=== PATIENT | male | born 1970 | race Caucasian/White ===

== ENCOUNTER 2022-07-22 09:11 | Outpatient (CLI) | payer OTHER, SELFPAY ==
--- NOTE | 2022-07-22 09:23 | CT_ITS ---
WS: [id number] LDCT LUNG CANCER SCREENING TECHNIQUE: Noncontrast CT of the chest with coronal and sagittal reformatted images. CLINICAL INFORMATION: NICOTINE DEPENDENCE,CIGARETTES COMPARISON: None. DLP: 76.42 mGy.cm DIvol: Mean CTDIvol: 1.60 (mGy) All CT scans at [facility] use at least one of these dose optimization techniques: automat ed exposure control; mA and/or kV adjustment per patient size (includes targeted exams where dose is matched to clinical indication); or iterative reconstruction. FINDINGS:Noncalcified nodule LEFT lower lobe measuring 5 mm. Tiny nodule RIGHT upper lobe. Normal caliber thoracic aorta. No mediastinal or hilar lymphadenopathy. No axillary lymphadenopathy. Adrenal glands are normal. Cholecystectomy clips. Hepatomegaly. Small esophageal hiatal hernia. No ac [place] pulmonary infiltrates. No focal pneumonia or pleural fluid. Moderate chronic emphysematous change s. Slight bibasilar atelectasis. CT/CT lung screening [id number] IMPRESSION: LUNG-RADS: 2-Benign Appearance or Behavior FOLLOW UP: 12 Month: Continue annual screening with LDCT
[2022-07-22 09:54] VITALS: PULSE 73; RESP 18; O2SAT 98
[2022-07-22] MEDS: albuterol 2.5 mg/3 mL Neb INHALATION (09:54)
[2022-07-22 09:58] VITALS: PULSE 79
== END 2022-07-22 09:12 | disposition home or self-care (01) ==
PROVIDERS: PCP Family Medicine; Visit Provider Family Medicine
DX: Z12.2 Encounter for screening for malignant neoplasm of respiratory organs (principal); F17.210 Nicotine dependence, cigarettes, uncomplicated; R05.3 Chronic cough
CPT/HCPCS: 71271; 94060; 94726; 94729; J7613

== ENCOUNTER 2023-02-08 08:19 | Emergency (ER) | payer OTHER, SELFPAY ==
[2023-02-08 08:24] VITALS: BP 201/123; PULSE 69; RESP 17; TEMP 36.8; O2SAT 98
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
--- NOTE | 2023-02-08 08:33 | ECG_ITS ---
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 Measurements Intervals [place] Rate: 68 P: 35 PA: 149 QRS: 39 QRSD: 105 T: 48 QT: 379 QTc: 404 Interpretive Statements SINUS RHYTHM WITH SINUS ARRHYTHMIA Compared to ECG 10/17/2014 15:41:47 No significant changes Electronically Signed On 02-08-2023 13:55:33 CDT by Sai Ferro M.D. [id number] f
[2023-02-08] MEDS: HYDROcodone-acetaminophen 7.5-325 mg Tablet 1 TAB PO (08:37)
[2023-02-08] MEDS: amlodipine 10 mg Tablet PO (08:37)
[2023-02-08 08:38] VITALS: BP 221/115; PULSE 81; O2SAT 98
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
[2023-02-08 09:32] VITALS: BP 161/95; PULSE 71; O2SAT 95
== END 2023-02-08 09:30 | disposition home or self-care (01) ==
PROVIDERS: Emergency Provider Emergency Medicine; PCP Family Medicine
DX: S13.4XXA Sprain of ligaments of cervical spine, initial encounter (principal); V49.00XA Driver injured in collision with unspecified motor vehicles in nontraffic accident, initial encounter
CPT/HCPCS: 72040; 72072; 73080; 93005; 99284

== ENCOUNTER 2023-10-09 12:45 | Inpatient (IN) | payer OTHER, SELFPAY ==
[2023-10-09 12:46] VITALS: BP 202/97; PULSE 75; RESP 16; TEMP 36.7; O2SAT 96; BMI 24.4
[2023-10-09 12:57] VITALS: BP 202/97; PULSE 75; RESP 16; O2SAT 96
[2023-10-09] MEDS: LORazepam 2 mg Tablet PO ×2 (13:18→19:00)
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
--- NOTE | 2023-10-09 13:46 | PC.PHAR ---
VERIFIED MEDICATIONS AND LAST FILL DATES WITH [facility].
--- NOTE | 2023-10-09 15:14 | PC.NURSE ---
pt cooperated and changed into paper scrubs with security. belongings removed.
[2023-10-09 15:48] LABS: Basophils # 0.2 10^3/uL (0.0-0.1); Basophils % 0.9 %; Eosinophils # 0.1 10^3/uL (0.0-0.8); Eosinophils % 0.8 %; Hematocrit 53.1 % (37-53); Lymphocytes # 2.7 10^3/uL (0.8-4.8); Lymphocytes % 15.3 %; Mean Corpuscular HGB Conc 34.1 g/dL (30-55); Mean Corpuscular Hemoglobin 31.7 pg (27-33); Mean Platelet Volume 10.2 fL (7.4-10.4); Monocytes # 1.1 10^3/uL (0.2-0.9); Monocytes % 6.3 %; Neutrophils # 13.18 10^3/uL (1.8-7.7); Nucleated Red Blood Cells % 0 %; Platelet Count 708 10^3/cmm (157-399); Red Blood Count 5.71 10^6/uL (3.85-5.65); Red Cell Distribution Width 14.3 % (12.1-15.1); White Blood Count 17.33 10^3/uL (3.29-11.43)
[2023-10-09 16:13] LABS: Alanine Aminotransferase 37 U/L (0-41); Albumin Level 4.3 g/dL (3.5-5.2); Alkaline Phosphatase 86 U/L (40-130); Anion Gap 18.3 (5-19); Aspartate Amino Transferase 26 U/L (0-40); Blood Urea Nitrogen 10 mg/dL (6-20); Calcium 9.1 mg/dL (8.5-10.5); Carbon Dioxide 20 mmol/L (22-29); Chloride 99 mmol/L (98-107); Creatinine Clr Calc Pharmacy 106.3586; Globulin 3.4 g/dL (1.3-4.6); Glomerular Filtration Rate 88.3 mL/min (90-130); Glucose 121 mg/dL (65-115); Osmolality Calculated 276 mOsm/kg (285-295); Potassium 4.3 mmol/L (3.5-5.1); Salicylate 0.9 mg/dL (3-10); Sodium 133 mmol/L (136-145); Total Bilirubin 0.5 mg/dL (0.15-1.2); Total Protein 7.7 g/dL (6.6-8.7)
[2023-10-09 16:17] LABS: Acetaminophen < 5.0 ug/mL (10-30)
--- NOTE | 2023-10-09 17:14 | PC.NURSE ---
96 hr rights reviewed with patient @1430 with assistance of [facility] hotel security officer Marty. All education reviewed. Pt verbalized that he did not want to stay overnight because of his kids and needing to be able to go to work. PO Ativan given prior to rights being reviewed. Patient remains agitated towards ER staff. Pt was moved from hallbed into ER 9 to try and given a more calming environment in efforts of avoiding any escalation in behavior. Copy of patient rights left with pt. Dietary called to get a tray of food for pt.
[2023-10-09 17:40] VITALS: BP 202/97; PULSE 75; RESP 16; O2SAT 96
[2023-10-09 18:24] LABS: Alcohol Level < 10 mg/dL (0-10)
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
[2023-10-09] MEDS: haloperidol 5 mg Tablet PO (19:54)
[2023-10-09] MEDS: trazodone 50 mg Tablet PO (19:54)
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
--- NOTE | 2023-10-09 21:44 | PC.NURSE ---
asked pt to obtain vital signs. pt stated he doesn't like to be touched. respirations 18.
[2023-10-10] VITALS: RESP 15
[2023-10-10 04:00] VITALS: RESP 17
[2023-10-10 08:00] VITALS: RESP 20
--- NOTE | 2023-10-10 08:08 | PC.NURSE ---
patient refused vitals saying he will continue to refuse, just wants to go home.
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
--- NOTE | 2023-10-10 09:20 | PC.NURSE ---
Patient refusing assessment
[2023-10-10 12:00] VITALS: RESP 18
--- NOTE | 2023-10-10 12:17 | PC.NURSE ---
Patient room checked for contraband. None found.
[2023-10-10] MEDS: LORazepam 2 mg Tablet PO (13:21)
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
[2023-10-10 16:00] VITALS: BP 158/94; PULSE 73; RESP 20; TEMP 36.6; O2SAT 98
[2023-10-10 20:00] VITALS: BP 183/115; PULSE 93; RESP 18; TEMP 36.3; O2SAT 98
[2023-10-10] MEDS: OLANZapine 5 mg ODT PO (20:42)
[2023-10-10] MEDS: trazodone 50 mg Tablet PO (20:42)
[2023-10-10] MEDS: hyDROXYzine 25 mg Capsule 50 MG PO (20:42)
[2023-10-11] VITALS: RESP 16
[2023-10-11 04:00] VITALS: RESP 16
[2023-10-11 07:51] VITALS: BP 151/91; PULSE 84; RESP 20; TEMP 36.4; O2SAT 95
--- NOTE | 2023-10-11 09:34 | PC.NURSE ---
Patient's blood pressure slightly elevated at 151/91. Patient record shows in 2022 he had previously been on amlodipine 5mg daily and patient stated he would take that medication if prescribed. This RN obtained an order from Dr. Mathew for amlodipine 5mg po daily.
[2023-10-11] MEDS: thiamine 100 mg Tablet PO (09:52)
[2023-10-11] MEDS: ARIPiprazole 2 mg Tablet PO (09:52)
[2023-10-11] MEDS: multivitamin therapeutic Tablet 1 TAB PO (09:52)
[2023-10-11] MEDS: fluoxetine 20 mg Capsule PO (09:52)
[2023-10-11] MEDS: folic acid 1 mg Tablet PO (09:52)
[2023-10-11] MEDS: amlodipine 5 mg Tablet PO (09:53)
[2023-10-11 11:26] VITALS: BP 151/91; PULSE 84; RESP 20; TEMP 36.4; O2SAT 95
--- NOTE | 2023-10-11 12:26 | PC.NURSE ---
Patient room searched for contraband. None found.
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
[2023-10-11 13:04] VITALS: BP 151/91; PULSE 84; RESP 20; TEMP 36.4; O2SAT 95
== END 2023-10-11 13:20 | disposition home or self-care (01) | DRG 885 ==
LOC: ER 13:56 → NP 15:29
PROVIDERS: Admitting Provider Psychiatry & Neurology Psychiatry; Emergency Provider Family Medicine; PCP Family Medicine; Visit Provider Psychiatry & Neurology Psychiatry
DX: F33.9 Major depressive disorder, recurrent, unspecified (principal); R45.851 Suicidal ideations; F10.20 Alcohol dependence, uncomplicated; F43.10 Post-traumatic stress disorder, unspecified; Z63.4 Disappearance and death of family member; Z63.79 Other stressful life events affecting family and household; Z63.8 Other specified problems related to primary support group
CPT/HCPCS: 36415; 80053; 80307; 85025; 99285

== ENCOUNTER 2024-01-02 10:41 | Inpatient (IN) | payer OTHER, SELFPAY ==
[2024-01-02] VITALS (35 sets, daily range): BP systolic 118–181; BP diastolic 70–116; PULSE 70–99; RESP 11–24; TEMP 36.4–36.6; O2SAT 88–97; BMI 30.7
--- NOTE | 2024-01-02 10:44 | ECG_ITS ---
[facility] Test Date: 2024-01-02 Pat Name: Shashi Hough Department: Room: Gender: Male Absorption Operator: : 1970 Requested By: Kya Gaines Order Number: [id number] Jason MD: Twin Ohara M.D. Measurements Intervals Napoleon Rate: 84 P: 53 KS: 150 QRS: 46 QRSD: 106 T: 72 QT: 344 QTc: 408 Interpretive Statements SINUS RHYTHM POSSIBLE RIGHT VENTRICULAR CONDUCTION DELAY [RSR (QR) IN V1/V2] NONSPECIFIC T-WAVE ABNORMALITY Compared to ECG 02/08/2023 08:33:29 T-wave abnormality now present Sinus arrhythmia no longer present Electronically Signed On 01-02-2024 18:47:33 CDT by Twin Ohara M.D. [id number]
--- NOTE | 2024-01-02 10:45 | XRR_ITS ---
PROCEDURE INFORMATION: Exam: XR Chest Exam date and time: 01/02/2024 10:59 AM Age: 53 years old Clinical indication: Pain; Chest pressure; Prior surgery; Surgery date: 6+ months; Surgery type: Chest tube; Additional info: Chest pain TECHNIQUE: Imaging protocol: Radiologic exam of the chest. Views: 1 view. COMPARISON: CT lung screening [id number] 07/22/2022 9:33 AM FINDINGS: Lungs: Mild bibasilar subsegmental atelectasis.. No consolidation. Pleural spaces: Small right apical pneumothorax. No pleural effusion. Heart/Mediastinum: Mild cardiomegaly. Unremarkable mediastinal contours. Bones/joints: Unremarkable. XR/XR chest 1V portable [id number] IMPRESSION: Small right apical pneumothorax.
--- NOTE | 2024-01-02 10:46 | W.ED.CHESTPA ---
HPI - Chest Pain General: Chief Complaint: Chest Pain Stated Complaint: chest pain Time Seen by Provider: 01/02/24 10:41 History of Present Illness: 53-year-old man with a history of hypertension, tobacco dependence, COPD and obesity who presents to the emergency room with episode of chest pain. Initially a pressure in his left chest into his left arm and then became very sharp across his whole chest. He felt more short of breath this morning. He says he is had a worse cough today. He is always short of breath and always has a cough because of his COPD and tobacco use. No nausea or vomiting. No abdominal pain. No altered mental status. No focal motor deficits. No headache. No fevers. No dizziness. Related Data Home Medications Medication Instructions Recorded Confirmed albuterol sulfate 90 mcg/actuation 1 puff inhalation Q6H PRN 10/09/23 01/02/24 aerosol inhaler Shortness Of Breath aripiprazole 2 mg tablet 2 mg PO DAILY 10/09/23 01/02/24 fluticasone fur. 100 mcg-umeclid 1 inh inhalation DAILY 10/09/23 01/02/24 62.5 mcg-vilant 25 mcg inhalat.powder (Trelegy Ellipta) pantoprazole 40 mg tablet,delayed 120 mg PO BEDTIME 10/09/23 01/02/24 release prazosin 2 mg capsule 60 mg PO BEDTIME 10/09/23 01/02/24 amlodipine 5 mg tablet 5 mg PO DAILY 10/11/23 01/02/24 Previous Rx's Medication Instructions Recorded fluoxetine 20 mg capsule 20 mg PO DAILY 30 days #30 caps 10/11/23 folic acid 1 mg tablet 1 mg PO DAILY 30 days #30 tabs 10/11/23 thiamine mononitrate (vit B1) 100 100 mg PO DAILY 30 days #30 tabs 10/11/23 mg tablet (Vitamin B-1 (mononitrate)) trazodone 50 mg tablet 50 mg PO BEDTIME PRN Sleep 30 days 10/11/23 #30 tabs Allergies Allergy/AdvReac Type Severity Reaction Status Date / Time No Known Allergies Allergy Verified 10/09/23 17:42 Review of Systems Narrative: General: Alert, no acute distress. Skin: Warm, dry. Head: Normocephalic, atraumatic. Neck: Supple, trachea midline. Eye: Extraocular movements are intact. Ears, nose, mouth and throat: mucosa moist. Cardiovascular: Regular, Normal peripheral perfusion. Respiratory: Lungs are clear to auscultation, respirations are non-labored, breath sounds are equal, Symmetrical chest wall expansion. Gastrointestinal: Soft, Nontender, Non distended Musculoskeletal: Normal ROM, no deformity. Neurological: Alert and oriented, No focal neurological deficit observed. Psychiatric: Cooperative, appropriate mood & affect. REPLACED BY [facility] ED REPLACED BY [facility]: Medical History (Updated 01/02/24 @ 15:12 by Kya Hogan MD) History of alcohol abuse Physical Exam Narrative: EXAM NARRATIVE: General: Alert, no acute distress. Skin: Warm, dry. Head: Normocephalic, atraumatic. Neck: Supple, trachea midline. Eye: Extraocular movements are intact. Ears, nose, mouth and throat: mucosa moist. Cardiovascular: Regular, Normal peripheral perfusion. Respiratory: Lungs are clear to auscultation, respirations are non-labored, breath sounds are equal, Symmetrical chest wall expansion. Gastrointestinal: Soft, Nontender, Non distended Musculoskeletal: Normal ROM, no deformity. Neurological: Alert and oriented, No focal neurological deficit observed. Psychiatric: Cooperative, appropriate mood & affect. Course Vital Signs: Vital signs: Vital Signs Pulse Rate 87 01/02/24 14:22 Respiratory Rate 15 01/02/24 14:22 Blood Pressure 176/102 01/02/24 14:22 Pulse Oximetry 94 01/02/24 14:22 Oxygen Delivery Me thod Room Air 01/02/24 14:22 MDM - Chest Pain Medical Decision Making Differential diagnosis for patient with chest pain includes but is not limited to and based on the above HPI, review of systems and physical exam: Pneumonia. unstable angina. angina. Acute coronary syndrome / MO. Pulmonary embolism. Costochondritis / musculoskeletal. Pleurisy. Pericarditis. Esophageal spasm. Pancreatis. Cholecystitis. Orders placed to evaluate differential diagnosis based on the above differential, HPI and physical exam EKG: Time 1044. Rate 84. Normal sinus rhythm, some new T wave inversions in V2., no ectopy, normal MN & QRS intervals, This was reviewed and interpreted by myself the ER physician at 10:46 AM. Some minimal changes as compared to EKG done on 02/08/2023. Repeat EKG: Time 1256. Rate 96. Normal sinus rhythm, some new T wave inversions in V2., no ectopy, normal MN & QRS intervals, This was reviewed and interpreted by myself the ER physician at 0100. No significant changes as compared to EKG done previously today in the emergency room.. Lab Review: Laboratory results were reviewed and interpreted by myself the emergency room physician. White count is mildly elevated at 12.8. Polycythemia with a hemoglobin of 17. Thrombophilia with a platelet count of 698. BUN and creatinine are normal at 11 and 0.9. Initial troponin is mildly elevated at 29. Chest x-ray: There was some concern for a small apical right pneumothorax. I thought this appeared more like emphysema and bullae. A CTA of the chest was ordered to reevaluate this and to rule out pulmonary emboli. This was reviewed and interpreted by myself the emergency room physician. I also reviewed the radiology report. CTA of the chest with PE protocol: No PE or other acute abnormality. Emphysematous changes. This was reviewed and interpreted by myself the emergency room physician. I also reviewed the radiology report. I reviewed the patient's medical record. Reexamination: Patient remained stable. No increased work of breathing. No altered mental status. No focal motor deficits. Currently chest pain-free. He is having difficulties with thought of being admitted because he has a daughter and no one to take care of her. Consultation: I spoke with Dr. Ohara who is on-call for cardiology. He recommends aspirin, Plavix, Lovenox and beta-ute. These have been ordered. Consultation: I spoke with Dr. Toledo with the hospitalist service he is admitting the patient. Special needs. Patient has a daughter with him who is 12 years old. She appears to be relatively mature for her age. He has absolutely no one who can take care of the patient tonight and was going to leave so he could take care of her. We discussed at length that he must come and that he is having a heart attack. He expresses understanding. Nursing has made an exception and the patient will be admitted to the ICU and his daughter will be able to stay in that room with him. Is a two bed room. Assessment and plan: Non-ST elevation myocardial infarction Accelerated hypertension Obesity Tobacco dependence ?Lovenox, aspirin, carvedilol and Plavix in the emergency room. -I discussed the patient with the hospitalist on-call who is admitting the patient. - Discussed findings and plan with patient. Answered any questions. - All laboratory values were reviewed and interpreted personally by myself, the ER physician - All imaging was reviewed and interpreted personally by myself, the ER physician. - Evaluation and treatment of this problem were appropriate in the emergency setting -I spent a total of >35 minutes of critical care time managing the patient, independent of any other practitioner. -The time involved in the performance of separately reportable procedures was not counted towards critical care time. Lab Data 01/02/24 10:25 01/02/24 10:25 Radiology Impressions Chest X-Ray 01/02/24 10:45 IMPRESSION: Small right apical pneumothorax. ADDENDUM: 01/02/24 1142 COMMENT: THIS REPORT CONTAINS FINDINGS THAT MAY BE CRITICAL TO PATIENT CARE. The exam findings were verbally communicated by me to KYA HOGAN via telephone conference at 11:39 AM CDT on 01/02/2024. The findings were acknowledged and understood. Chest CTA 01/02/24 11:41 IMPRESSION: No CT evidence of pulmonary embolus or other acute abnormality. COMMENTS: The presence of pulmonary emphysema on CT is an independent risk factor for lung cancer. In the absence of a history or active diagnosis of lung cancer, it is recommended that this patient with emphysema be evaluated for enrollment in a low dose CT lung cancer screening program. Laboratory Results WBC 12.81 10^3/uL (3.29-11.43) H 01/02/24 10:25 RBC 5.43 10^6/uL (3.85-5.65) 01/02/24 10:25 Hgb 17.00 g/dL (11.27-16.99) H 01/02/24 10:25 Hct 50.0 % (37-53) 01/02/24 10:25 MCV 92.1 fl (82-101) 01/02/24 10:25 MCH 31.3 pg (27-33) 01/02/24 10:25 MCHC 34.0 g/dL (30-55) 01/02/24 10:25 RDW 13.6 % (12.1-15.1) 01/02/24 10:25 Plt Count 698 10^3/cmm (157-399) H 01/02/24 10:25 MPV 10.5 fL (7.4-10.4) H 01/02/24 10:25 Neut % (Auto) 60.4 % 01/02/24 10:25 Lymph % (Auto) 28.6 % 01/02/24 10:25 [place] % (Auto) 6.1 % 01/02/24 10:25 Eos % (Auto) 2.8 % 01/02/24 10:25 Baso % (Auto) 1.2 % 01/02/24 10:25 Neut # (Auto) 7.75 10^3/uL (1.8-7.7) H 01/02/24 10:25 Lymph # (Auto) 3.7 10^3/uL (0.8-4.8) 01/02/24 10:25 [place] # (Auto) 0.8 10^3/uL (0.2-0.9) 01/02/24 10:25 Eos # (Auto) 0.4 10^3/uL (0.0-0.8) 01/02/24 10:25 Baso # (Auto) 0.2 10^3/uL (0.0-0.1) H 01/02/24 10:25 Nucleated RBC % (auto) 0 % 01/02/24 10:25 Nucleated RBCs # 0.0 /100WBC 01/02/24 10:25 Sodium 134 mmol/L (136-145) L 01/02/24 10:25 Potassium 5.1 mmol/L (3.5-5.1) 01/02/24 10:25 Chloride 101 mmol/L (98-107) 01/02/24 10:25 Carbon Dioxide 19 mmol/L (22-29) L 01/02/24 10:25 Anion Gap 19.1 (5-19) H 01/02/24 10:25 BUN 11 mg/dL (6-20) 01/02/24 10:25 Creatinine 0.9 mg/dL (0.7-1.2) 01/02/24 10:25 GFR Calculation 87.9 mL/min (90-130) L 01/02/24 10:25 Glucose 155 mg/dL (65-115) H 01/02/24 10:25 Calculated Osmolality 281 mOsm/kg (285-295) L 01/02/24 10:25 Calcium 9.8 mg/dL (8.5-10.5) 01/02/24 10:25 Iron 68 ug/dL (59-158) 01/02/24 12:23 TIBC 210 mcg/dl 01/02/24 12:23 % Saturation 32.3 % (20-50) 01/02/24 12:23 Unsat Iron Binding 142 ug/dL (112-347) 01/02/24 12:23 Total Bilirubin 0.3 mg/dL (0.15-1.2) 01/02/24 10:25 AST 24 U/L (0-40) 01/02/24 10:25 ALT 33 U/L (0-41) 01/02/24 10:25 Alkaline Phosphatase 87 U/L (40-130) 01/02/24 10:25 Troponin T Baseline 29 ng/L (0-15) H 01/02/24 10:25 Troponin T 120 Minute 224.1 ng/L (0-15) H 01/02/24 12:23 Delta Troponin T 195.1 ABS# (0-10) H* 01/02/24 12:23 C-Reactive Protein 3.0 mg/L (0.0-4.9) 01/02/24 10:25 NT-Pro-B Natriuret Pep 58 pg/mL (0-125) 01/02/24 10:25 Total Protein 7.0 g/dL (6.6-8.7) 01/02/24 10:25 Albumin 4.3 g/dL (3.5-5.2) 01/02/24 10:25 Globulin 2.7 g/dL (1.3-4.6) 01/02/24 10:25 Vitamin B12 319 pg/mL (232-1245) 01/02/24 12:23 Procalcitonin 0.15 ng/mL (0-0.5) 01/02/24 12:23 TSH 1.27 uIU/mL (0.27-4.20) 01/02/24 12:23 All radiology interpretation(s) finalized by discharge Discharge Plan Discharge Patient Disposition: Admitted As Inpatient Admit Provider: Krishna Henao Clinical Impression: Non-ST elevated myocardial infarction, Accelerated hypertension, Tobacco dependence, Obesity Condition: Stable Coding Level of Care Code ED Natural Resources Engineer for Nicki Bahena
[2024-01-02 10:55] LABS: Basophils # 0.2 10^3/uL (0.0-0.1); Basophils % 1.2 %; Eosinophils # 0.4 10^3/uL (0.0-0.8); Eosinophils % 2.8 %; Lymphocytes # 3.7 10^3/uL (0.8-4.8); Lymphocytes % 28.6 %; Mean Corpuscular Hemoglobin 31.3 pg (27-33); Mean Corpuscular Volume 92.1 fl (82-101); Mean Platelet Volume 10.5 fL (7.4-10.4); Monocytes # 0.8 10^3/uL (0.2-0.9); Monocytes % 6.1 %; Neutrophils # 7.75 10^3/uL (1.8-7.7); Neutrophils % 60.4 %; Nucleated Red Blood Cells % 0 %; Platelet Count 698 10^3/cmm (157-399); Red Blood Count 5.43 10^6/uL (3.85-5.65); Red Cell Distribution Width 13.6 % (12.1-15.1); White Blood Count 12.81 10^3/uL (3.29-11.43)
[2024-01-02 11:14] LABS: Troponin(5th) Baseline 29 ng/L (0-15)
[2024-01-02 11:30] LABS: Alanine Aminotransferase 33 U/L (0-41); Albumin Level 4.3 g/dL (3.5-5.2); Alkaline Phosphatase 87 U/L (40-130); Anion Gap 19.1 (5-19); Aspartate Amino Transferase 24 U/L (0-40); Blood Urea Nitrogen 11 mg/dL (6-20); Calcium 9.8 mg/dL (8.5-10.5); Carbon Dioxide 19 mmol/L (22-29); Chloride 101 mmol/L (98-107); Globulin 2.7 g/dL (1.3-4.6); Glomerular Filtration Rate 87.9 mL/min (90-130); Glucose 155 mg/dL (65-115); NT Pro B Type Natriuretic Pept 58 pg/mL (0-125); Osmolality Calculated 281 mOsm/kg (285-295); Potassium 5.1 mmol/L (3.5-5.1); Sodium 134 mmol/L (136-145); Total Bilirubin 0.3 mg/dL (0.15-1.2)
--- NOTE | 2024-01-02 11:41 | CTR_ITS ---
PROCEDURE INFORMATION: Exam: CTA Chest With Contrast Exam date and time: 01/02/2024 12:07 PM Age: 53 years old Clinical indication: Pain; Chest pressure; Prior surgery; Surgery date: 6+ months; Surgery type: Chest tube; Additional info: Chest pain, pneumothorax TECHNIQUE: Imaging protocol: Computed tomographic angiography of the chest with contrast. Exam focused on the arteries. 3D rendering (Not supervised by radiologist): MIP and/or 3D reconstructed images were created by the technologist. Radiation optimization: All CT scans at this facility use at least one of these dose optimization techniques: automated exposure control; mA and/or kV adjustment per patient size (includes targeted exams where dose is matched to clinical indication); or iterative reconstruction. Contrast material: OMNI 350; Contrast volume: 100 ml; Contrast route: INTRAVENOUS (IV); COMPARISON: CT lung screening [id number] 07/22/2022 9:33 AM RADIATION DOSE METRICS: Total DLP (mGy-cm): 499.04 FINDINGS: Pulmonary arteries: Normal. No pulmonary emboli. Aorta: Unremarkable. No aortic aneurysm. No aortic dissection. Lungs: There is mild bilateral lower lobe atelectasis. No consolidating infiltrates are noted. There are emphysematous changes noted Pleural spaces: Unremarkable. No pneumothorax. No pleural effusion. Heart: Unremarkable. No cardiomegaly. No pericardial effusion. Lymph nodes: There are small mediastinal and hilar lymph nodes which are not pathologically enlarged by size criteria. Bones/joints: There is a remote fracture deformity of the mid to distal right clavicle. There are also multiple remote right rib fracture deformities. No acute fractures are noted. There are degenerative changes of the thoracic spine. Soft tissues: Unremarkable. CT/CT angio chest PE protcl [id number] IMPRESSION: No CT evidence of pulmonary embolus or other acute abnormality. COMMENTS: The presence of pulmonary emphysema on CT is an independent risk factor for lung cancer. In the absence of a history or active diagnosis of lung cancer, it is recommended that this patient with emphysema be evaluated for enrollment in a low dose CT lung cancer screening program.
[2024-01-02] MEDS: iohexol 350 mg/mL 500 mL Btl (per mL) IV (12:11)
--- NOTE | 2024-01-02 12:45 | ECG_ITS ---
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 Measurements Intervals [place] Rate: 96 P: 47 IN: 147 QRS: 45 QRSD: 109 T: 78 QT: 333 QTc: 421 Interpretive Statements SINUS RHYTHM POSSIBLE RIGHT VENTRICULAR CONDUCTION DELAY [RSR (QR) IN V1/V2] NONSPECIFIC ST & T-WAVE ABNORMALITY Compared to ECG 01/02/2024 10:44:07 No significant changes Electronically Signed On 01-02-2024 18:51:57 CDT by Twin Ohara M.D. [id number]
[2024-01-02 13:15] LABS: Troponin 5 2HR 224.1 ng/L (0-15)
[2024-01-02 13:16] LABS: Troponin 5 2HR Delta 195.1 ABS# (0-10)
--- NOTE | 2024-01-02 13:34 | USCV_ITS ---
Shashi Hough Age: 53 Gender: M : 1970 Exam Date: 01/02/2024 15:31 Ordering Phys: Krishna Henao MD Technologist: Hans Lagunas Exam Location: [facility] [place] Indication: nstemi BP: 176 / 102 HR: 80 Rhythm: Sinus Technical Quality: Adequate MEASUREMENTS (Male / Female) Normal Values 2D ECHO LV Diastolic Diameter PLAX 6.3 cm 4.2 - 5.9 / 3.9 - 5.3 cm IVS Diastolic Thickness 1.2 cm 0.6 - 1.0 / 0.6 - 0.9 cm IVS Systolic Thickness 1.3 cm LVPW Diastolic Thickness 1.7 cm 0.6 - 1.0 / 0.6 - 0.9 cm LVPW Systolic Thickness 2.7 cm LVOT Diameter 2.0 cm LV Ejection Fraction 2D Teich 42.8 % LV Ejection Fraction MOD 4C 49.5 % LV Ejection Fraction MOD 2C 43.6 % LV Ejection Fraction 2C AL 44.8 % LA Diameter 4.2 cm RA Systolic Volume 4C AL 30.5 ml RA Systolic Volume 4C MOD 31.2 ml LA Sys Volume AL 51.9 cm cubed LA Sys Volume Index AL 22.9 cm cubed/m squared Aorta at Sinotubular Diameter 2.5 cm IVC Diameter 2.0 cm M-MODE LA Ao Ratio MM 1.1 AV Cusp Separation MM 1.8 cm DOPPLER AV Peak Velocity 113.3 cm/s LVOT Peak Velocity 92.0 cm/s AV Area Cont Eq vti 2.4 cm squared AV Area Cont Eq pk 2.6 cm squared MV Peak Velocity 110.0 cm/s MV Area PHT 6.9 cm squared Mitral E to A Ratio 1.1 TV Peak Velocity 174.5 cm/s TR Peak Velocity 218.0 cm/s TR Peak Gradient 19.0 mmHg TR Mean Velocity 172.0 cm/s TR Mean Gradient 12.5 mmHg TR Velocity Time Integral 49.0 cm PV Peak Velocity 106.3 cm/s RV Ejection Time 0.2 s FINDINGS Left Ventricle Moderate hypokinesia of the mid and apical septum, inferior wall and apical segments. LV ejection fraction around 40 to 45%.Grade I/IV diastolic dysfunction (abnormal relaxation filling pattern), normal to mildly elevated filling pressures. Right Ventricle Normal right ventricular size and systolic function. Right Atrium The right atrium is normal in size. Left Atrium Mildly increased left atrial size. Mitral Valve No gross valvular abnormalities Aortic Valve No gross abnormalities noted Tricuspid Valve No gross abnormalities noted Pulmonic Valve Pulmonic valve not well visualized. Pericardium Normal pericardium without effusion. Aorta Normal ascending aorta dimension. IVC Inferior vena cava not visualized. CONCLUSIONS Moderate hypokinesia of the mid and apical septum, inferior wall and apical segments. LV ejection fraction around 40 to 45% .Grade I/IV diastolic dysfunction (abnormal relaxation filling pattern), normal to mildly elevated filling pressures. Mildly increased left atrial size. No intracardiac masses. No pericardial effusion No similar previous studies are available for comparison Dr Twin Ohara MD FACC (Electronically Signed) Final Date: 02 January 2024 16:58 S
[2024-01-02] MEDS: atorvastatin 40 mg Tablet 80 MG PO (13:51)
[2024-01-02] MEDS: clopidogrel 300 mg Tablet PO (13:51)
[2024-01-02] MEDS: sodium chloride 0.9% 1,000 ML 75 ML IV (13:51)
[2024-01-02] MEDS: aspirin 81 mg Chew Tablet 324 MG PO (13:51)
[2024-01-02] MEDS: enoxaparin 100 mg/mL Syringe SUBCUT (13:51)
--- NOTE | 2024-01-02 14:10 | P.HP_ITS ---
Providers/Chief Complaint 2 Admitting Physician: Krishna Henao MD Primary Care Provider: Augusto Kelly MD Chief Complaint: chest pain History of Present Illness Shashi Hough is a 53 year old male Chronic smoker, hypertensive, COPD who presents to the ER today because of bandlike chest pain rating to neck which started around 10 AM relieved after nitro. Patient denies having any family or personal history of CAD or stroke in the past. Drinks up to 2 beer every evening with last compression yesterday evening. Denies any nausea vomiting, headache for now. In the ER he was found to have baseline troponin of 29 with a delta of 195 in 2 hours. On examination in ICU he was still complaining of chest heaviness and some chest pain on the right side though better than when he had come to the ER. Was found to have a systolic blood pressure of 170 over 100 mmHg. Review of Systems 2 General: Reports: 10 or more systems reviewed and unremarkable except in HPI and below Const: Denies: fever(s), chills, body aches, change in appetite, change in weight, malaise, night sweats, diaphoresis, change in sleep pattern, daytime sleepiness or snoring Eyes: Denies: change in vision, blurry vision, photophobia, eye discomfort or eye discharge ENMT: Denies: throat pain, enlarged tonsils, hoarseness, mouth pain, oral sores, dry mouth, tinnitus, nasal congestion or post nasal drip Card: Denies: chest pain, palpitations, irregular heart rhythm, edema, swelling of feet/ankles, lightheadedness, syncope, pre-syncope, dyspnea on exertion, orthopnea, leg pain with exertion or acrocyanosis Resp: Denies: dyspnea, productive cough, non-productive cough, wheezing, stridor, pain on inspiration, change in phlegm color, hemoptysis or chest congestion GI: Denies: abdominal pain, nausea, vomiting, hematemesis, coffee ground emesis, dysphagia, heartburn, diarrhea, constipation, bloating, GI cramping, change in bowel habits, pain on defecation, hematochezia or melena : Denies: flank pain, difficulty urinating, dysuria, urinary frequency, urinary urgency, urinary hesitancy, urinary dribbling, difficulty starting urination, change in urine stream, nocturia or hematuria Musc: Denies: neck pain, back pain, extremity pain, joint pain, joint swelling, joint redness, joint stiffness or limited range of motion Neuro: Denies: headache(s), numbness in extremities, weakness in extremities, sensory changes, lack of coordination, difficulty walking, frequent falls, dizziness, vertigo, confusion, Slurred speech present, difficulty communicating thoughts or seizure-like activity Psych: Denies: anxiety, depression, mood swings, panic attacks, hopelessness or irritability Endo: Denies: polyuria, polydipsia, tired all the time, cold intolerance, excessive sweating, flushing or heat intolerance Neo/Lymph: Denies: easy bruising or easy bleeding All/Imm: Denies: tongue swelling, facial swelling or acute wheezing Medications/Allergies Home Medications Medication Instructions Recorded Confirmed Last Taken Type albuterol sulfate 90 mcg/actuation 1 puff inhalation Q6H PRN 10/09/23 01/02/24 Unknown History aerosol inhaler Shortness Of Breath aripiprazole 2 mg tablet 2 mg PO DAILY 10/09/23 01/02/24 01/01/24 09:00 History 2 fluticasone fur. 100 mcg-umeclid 1 inh inhalation DAILY 10/09/23 01/02/24 Unknown History 62.5 mcg-vilant 25 mcg inhalat.powder (Trelegy Ellipta) pantoprazole 40 mg tablet,delayed 120 mg PO BEDTIME 10/09/23 01/02/24 01/01/24 09:00 History release prazosin 2 mg capsule 60 mg PO BEDTIME 10/09/23 01/02/24 01/01/24 22:00 History amlodipine 5 mg tablet 5 mg PO DAILY 10/11/23 01/02/24 01/01/24 09:00 History 5 fluoxetine 20 mg capsule 20 mg PO DAILY 30 days #30 caps 10/11/23 01/02/24 01/01/24 09:00 Rx folic acid 1 mg tablet 1 mg PO DAILY 30 days #30 tabs 10/11/23 01/02/24 01/01/24 09:00 Rx thiamine mononitrate (vit B1) 100 100 mg PO DAILY 30 days #30 tabs 10/11/23 01/02/24 01/01/24 09:00 Rx mg tablet (Vitamin B-1 (mononitrate)) trazodone 50 mg tablet 50 mg PO BEDTIME PRN Sleep 30 days 10/11/23 01/02/24 01/01/24 22:00 Rx #30 tabs Allergies Allergy/AdvReac Type Severity Reaction Status Date / Time No Known Allergies Allergy Verified 10/09/23 17:42 PFSH Acute 2 PFSH: Medical History Hypertension COPD (chronic obstructive pulmonary disease) Tobacco dependence PTSD (post-traumatic stress disorder) History of alcohol abuse Vitals/I&O/Wt Last Vital Signs Pulse 88 01/02/24 13:00 Resp 16 01/02/24 13:00 BP 124/73 01/02/24 13:00 Pulse Ox 96 01/02/24 13:00 O2 Del Method Room Air 01/02/24 13:00 Weight last 48 hrs Weight 99.79 kg Physical Exam 2 Narrative: General: No acute distress, AO x3 HEENT: PERRLA, pupils bilaterally equal and reactive Chest: Normal vesicular breath sounds, no added sounds, equal good air entry bilaterally CVS: S1-S2 regular, no murmurs, no tachycardia, no gallops, no rubs Abdomen: Soft, nontender, no organomegaly, bowel sounds present Neuro: No focal deficits, no facial deformity, AO x3, power 5/5 in all limbs Data 01/03/24 02:43 01/03/24 02:43 A&P Assessment and plan (1) Non-ST elevated myocardial infarction: Typical chest pain. Delta of 195 in 2 hours. Cycle troponins. Check A1c, lipid panel, echocardiogram. Aspirin 325 mg one-time followed by 81 mg daily, atorvastatin 80 mg statin then nightly. Start on metoprolol 25 mg twice daily. Morphine 1 mg 4 hours as needed for chest pain. Nitro drip as patient is hypotensive and continues to have chest pain. Titrate as per blood pressures. Lovenox 1 mg/kg body weight every 12 hourly. Cardiology consulted from ER. For now we will keep n.p.o. for possibility of cardiac angiogram. (2) Accelerated hypertension: Goal blood pressure less than 140/90 mmHg. Nitro drip as above. Metoprolol 25 mg twice daily. Will uptitrate as per goal blood pressures and wean nitro drip accordingly. (3) COPD (chronic obstructive pulmonary disease): Uses Trelegy at home. Chronic smoker. Will offer nicotine patch. DuoNeb every 6 hour, Pulmicort twice daily. (4) Tobacco dependence: Counseled against smoking. Nicotine patch (5) Alcohol dependence: Chronically drinks up to 2 cans of beer nightly. Check alcohol level, urine drug screen. CIWA protocol as needed. Plan Full code Cardiac diet Protonix OPD prophylaxis Full dose Lovenox will be sufficient for DVT prophylaxis Continue with other chronic medications including aripiprazole, fluoxetine, prazosin Attestations 2 Medical Necessity Statement*: Admission for more than 2 midnights for management accelerated hypertension, non-ST elevation [place] Critical Care Time: The high probability of a clinically significant, sudden or life threatening deterioration of the patient's [cardiac] system(s) required my full and direct attention, intervention and personal management. The critical care time is as shown. This time is in addition to time spent performing any reported procedures but includes the following: [x] Data and vital sign review and interpretation [x] Patient assessment, examination and intervention [x] Documentation [x] Medication orders and management Critical Care Time (min): 60 Coding Level of Care Code Critical Care >/= 30 minutes Critical care time (in minutes): 60 The high probability of a clinically significant, sudden or life threatening deterioration, as referenced in this documentation, required my full and direct attention, intervention and personal management. The critical care time shown is in addition to time spent performing any reported separately billable procedures and includes the following: [x] Data and vital sign review and interpretation [x ] Patient assessment, examination and intervention [x] Medication orders and management [x] Patient/Family updates as able [x] Care Coordination and Documentation. Diagnoses Non-ST elevated myocardial infarction I21.4 Accelerated hypertension I10 COPD (chronic obstructive pulmonary disease) J44.9 Tobacco dependence F17.200 Alcohol dependence F10.20
[2024-01-02 14:16] LABS: Procalcitonin 0.15 ng/mL (0-0.5); Thyroid Stimulating Hormone 1.27 uIU/mL (0.27-4.20); Vitamin B12 319 pg/mL (232-1245)
[2024-01-02 14:24] LABS: Charge for UA Resulting for Rev
[2024-01-02 14:27] LABS: Bilirubin Urine Negative (Negative); Blood Urine Negative (Negative); Glucose Urine UA Negative (Normal); Ketones Urine Negative (Negative); Leukocyte Esterase Urine Negative (Negative); Nitrate Urine Negative (Negative); Protein Urine Trace (Negative); Urine Appearance Clear (CLEAR); Urine Color Yellow (Yellow); pH Urine 5.5 (5-7)
[2024-01-02 14:27] LABS: Iron 68 ug/dL (59-158); Percent Saturation 32.3 % (20-50); Total Iron Binding Capacity 210 mcg/dl; Unsaturated Iron Binding 142 ug/dL (112-347)
[2024-01-02 14:32] LABS: Bacteria Urine None Seen /hpf; Hyaline Casts Urine 1.65 /lpf; RBC Urine 0-2 /hpf (0-2); Squamous Epithelial Cell Urine 0-5 /hpf (0-5); WBC Urine 0-5 /hpf (0-5)
[2024-01-02 14:34] LABS: Amphetamines Screen Urine Negative (Negative); Barbiturates Screen Urine Negative (Negative); Benzodiazepines Screen Urine Negative (Negative); Cocaine Screen Urine Negative (Negative); Opiate Screen Urine Negative (Negative); PCP Screen Urine Negative (Negative); THC Screen Urine Positive (Negative)
[2024-01-02 14:47] LABS: Specific Gravity, Urine 1.059 (1.005-1.030)
[2024-01-02 14:54] LABS: Alcohol Level < 10 mg/dL (0-10)
[2024-01-02] MEDS: nitroglycerin drip 50 MG/250 ML PREMIX IV (15:21)
[2024-01-02] MEDS: metoprolol tartrate 25 mg Tablet PO (15:27)
[2024-01-02] MEDS: pantoprazole 40 mg SDV IVP (15:39)
--- NOTE | 2024-01-02 15:46 | P.CONIM_ITS ---
Providers/Reason For Consult 2 Consulting Physician/Specialty*: NIRAJ Ohara MD/cardiology Reason for Consult*: Patient with a chest pain and elevated troponin T Requesting Physician: Dr. [place] Attending Physician: Krishna Henao MD Primary Care Provider: Augusto Kelly MD History of Present Illness History of Present Illness Shashi Hough is a 53 year old male with a history of hypertension, heavy smoking abuse, heavy alcohol abuse, [facility] room where he present with complaints of acute onset of chest pain. This patient apparently has been in his baseline state of health up until this morning as he was getting back to the house, started having chest pain. The pain was in the low substernal region, radiating across the chest, to the left axilla and to the inner aspect of the left arm. He had associated shortness of breath, nausea and sweating. Initially the pain was 10/10. No other associated symptoms or radiation of pain. The pain might have lasted for 5 minutes or so. Since there was no relief of the symptoms, he called the ambulance. He took 1 baby aspirin at home. The ambulance crew gave him 1 sublingual nitro as they arrived at the scene. His symptoms started subsiding. The intensity of the pain dropped down to 2/10. He continues to have the chest pain with similar intensity. No fever, chills or cough. No other specific complaints. This patient has no previous history for any coronary disease, myocardial infarction or congestive heart failure. He has a history of smoking abuse, 1- 1/2 pack a day for the last more than 30 years. Also drinks heavily for the last more than 20 years. Smokes marijuana couple of times a week. No other substance abuse. Has a history of hypertension for the last few years. Has been taking amlodipine at home. He lost his 6 years ago- of pneumonia. 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 Review of Systems 2 Narrative: CONSTITUTIONAL: No fever or chills. EYES: No blurring of vision or other visual disturbances lately. ENT: No hoarseness of voice, auditory disturbances or sore throat. CARDIOVASCULAR: As mentioned above. RESPIRATORY: History of COPD/reactive airway disease GASTROINTESTINAL: No hematemesis or melena. GENITOURINARY: No dysuria or hematuria. INTEGUMENTARY: No skin rashes or history of skin cancer. NEURO: No transient ischemic attacks or amaurosis. PSYCHIATRIC: No history of psychosis or major depression. HEMATOLOGIC: No bleeding disorders or significant anemia. ENDOCRINE: No history of polyuria or polydipsia. MUSCULOSKELETAL: No recent joint pain or swelling. ALLERGY/IMMUNOLOGY: As mentioned above. Medications/Allergies Home Medications Medication Instructions Recorded Confirmed Last Taken Type albuterol sulfate 90 mcg/actuation 1 puff inhalation Q6H PRN 10/09/23 01/02/24 Unknown History aerosol inhaler Shortness Of Breath aripiprazole 2 mg tablet 2 mg PO DAILY 10/09/23 01/02/24 01/01/24 09:00 History 2 fluticasone fur. 100 mcg-umeclid 1 inh inhalation DAILY 10/09/23 01/02/24 Unknown History 62.5 mcg-vilant 25 mcg inhalat.powder (Trelegy Ellipta) pantoprazole 40 mg tablet,delayed 120 mg PO BEDTIME 10/09/23 01/02/24 01/01/24 09:00 History release prazosin 2 mg capsule 60 mg PO BEDTIME 10/09/23 01/02/24 01/01/24 22:00 History amlodipine 5 mg tablet 5 mg PO DAILY 10/11/23 01/02/24 01/01/24 09:00 History 5 fluoxetine 20 mg capsule 20 mg PO DAILY 30 days #30 caps 10/11/23 01/02/24 01/01/24 09:00 Rx folic acid 1 mg tablet 1 mg PO DAILY 30 days #30 tabs 10/11/23 01/02/24 01/01/24 09:00 Rx thiamine mononitrate (vit B1) 100 100 mg PO DAILY 30 days #30 tabs 10/11/23 01/02/24 01/01/24 09:00 Rx mg tablet (Vitamin B-1 (mononitrate)) trazodone 50 mg tablet 50 mg PO BEDTIME PRN Sleep 30 days 10/11/23 01/02/24 01/01/24 22:00 Rx #30 tabs Allergies Allergy/AdvReac Type Severity Reaction Status Date / Time No Known Allergies Allergy Verified 10/09/23 17:42 Current Medications Generic Name Dose Route Start Last Admin Trade Name Freq PRN Reason Stop Dose Admin Enoxaparin Sodium 100 mg 01/02/24 13:45 01/02/24 13:51 Enoxaparin 100 Mg/Ml Syringe 1 mg/kg (100 mg) 100 mg SUBCUT Administration Q12H GINNA Sodium Chloride 1,000 mls @ 75 mls/hr 01/02/24 13:45 01/02/24 13:51 Sodium Chloride 0.9% IV 75 mls/hr .[id number] GINNA Administration Nitroglycerin/Dextrose 50 mg in 250 mls @ 0 mls/hr 01/02/24 15:15 01/02/24 15:21 Nitroglycerin Drip IV 10 mcg/min .Q0M GINNA 3 mls/hr Administration Protocol Per Protocol Metoprolol Tartrate 25 mg 01/02/24 15:15 01/02/24 15:27 Metoprolol Tartrate 25 Mg Tablet PO 25 mg BID@0900,2100 GINNA Administration Pantoprazole Sodium 40 mg 01/02/24 15:27 01/02/24 15:39 Pantoprazole 40 Mg Sdv IVP 40 mg Q24H GINNA Administration PFSH Acute 2 PFSH: Medical History Hypertension COPD (chronic obstructive pulmonary disease) Tobacco dependence PTSD (post-traumatic stress disorder) History of alcohol abuse Vitals/I&O/Wt Last Vital Signs Temp 98 F 01/02/24 15:15 Pulse 96 01/02/24 15:30 Resp 23 H 01/02/24 15:30 BP 173/112 01/02/24 15:30 Pulse Ox 93 01/02/24 15:30 O2 Del Method Room Air 01/02/24 14:22 Weight last 48 hrs Weight 220 lb Weight 220 lb Physical Exam 2 Narrative: GENERAL: The patient is alert and oriented times three. Not in any acute distress. HEENT: No significant pallor, icterus or lymphadenopathy.Oral cavity: There are no mucous membrane lesions. NECK: Trachea appears to be central. No masses noted. No JVD or thyromegaly appreciated. RESPIRATORY: Chest is symmetrical. No intercostals muscle retraction or any accessory muscle activation. There is no chest wall tenderness. Breath sounds are heard bilaterally. No rales or rhonchi heard. No evidence of any consolidation. BREASTS: Deferred. HEART: The heart sounds are normal. No S3 or S4. No significant murmurs. No pericardial rub ABDOMEN: No vessel pulsations or distention. No tenderness. No organomegaly appreciated. Bowel sounds are normally heard. : Deferred. RECTAL: Deferred. LYMPHATIC: No lymphadenopathy noted in the neck. EXTREMITIES: No edema or cyanosis. No clubbing. MUSCULOSKELETAL: No acute joint deformities or swelling SKIN: There are no significant rashes or ecchymosis NEUROPSYCHIATRIC: The patient is alert and oriented x3. Appears to be in a good mood. No tremors or rigidity noted. Data 01/02/24 10:25 01/02/24 10:25 Other Labs: Laboratory Last Values WBC 12.81 10^3/uL (3.29-11.43) H 01/02/24 10:25 RBC 5.43 10^6/uL (3.85-5.65) 01/02/24 10:25 Hgb 17.00 g/dL (11.27-16.99) H 01/02/24 10:25 Hct 50.0 % (37-53) 01/02/24 10:25 MCV 92.1 fl (82-101) 01/02/24 10:25 MCH 31.3 pg (27-33) 01/02/24 10:25 MCHC 34.0 g/dL (30-55) 01/02/24 10:25 RDW 13.6 % (12.1-15.1) 01/02/24 10:25 Plt Count 698 10^3/cmm (157-399) H 01/02/24 10:25 MPV 10.5 fL (7.4-10.4) H 01/02/24 10:25 Neut % (Auto) 60.4 % 01/02/24 10:25 Lymph % (Auto) 28.6 % 01/02/24 10:25 [place] % (Auto) 6.1 % 01/02/24 10:25 Eos % (Auto) 2.8 % 01/02/24 10:25 Baso % (Auto) 1.2 % 01/02/24 10:25 Neut # (Auto) 7.75 10^3/uL (1.8-7.7) H 01/02/24 10:25 Lymph # (Auto) 3.7 10^3/uL (0.8-4.8) 01/02/24 10:25 [place] # (Auto) 0.8 10^3/uL (0.2-0.9) 01/02/24 10:25 Eos # (Auto) 0.4 10^3/uL (0.0-0.8) 01/02/24 10:25 Baso # (Auto) 0.2 10^3/uL (0.0-0.1) H 01/02/24 10:25 Nucleated RBC % (auto) 0 % 01/02/24 10:25 Nucleated RBCs # 0.0 /100WBC 01/02/24 10:25 Sodium 134 mmol/L (136-145) L 01/02/24 10:25 Potassium 5.1 mmol/L (3.5-5.1) 01/02/24 10:25 Chloride 101 mmol/L (98-107) 01/02/24 10:25 Carbon Dioxide 19 mmol/L (22-29) L 01/02/24 10:25 Anion Gap 19.1 (5-19) H 01/02/24 10:25 BUN 11 mg/dL (6-20) 01/02/24 10:25 Creatinine 0.9 mg/dL (0.7-1.2) 01/02/24 10:25 GFR Calculation 87.9 mL/min (90-130) L 01/02/24 10:25 Glucose 155 mg/dL (65-115) H 01/02/24 10:25 Calculated Osmolality 281 mOsm/kg (285-295) L 01/02/24 10:25 Calcium 9.8 mg/dL (8.5-10.5) 01/02/24 10:25 Iron 68 ug/dL (59-158) 01/02/24 12:23 TIBC 210 mcg/dl 01/02/24 12:23 % Saturation 32.3 % (20-50) 01/02/24 12:23 Unsat Iron Binding 142 ug/dL (112-347) 01/02/24 12:23 Total Bilirubin 0.3 mg/dL (0.15-1.2) 01/02/24 10:25 AST 24 U/L (0-40) 01/02/24 10:25 ALT 33 U/L (0-41) 01/02/24 10:25 Alkaline Phosphatase 87 U/L (40-130) 01/02/24 10:25 Troponin T Baseline 29 ng/L (0-15) H 01/02/24 10:25 Troponin T 120 Minute 224.1 ng/L (0-15) H 01/02/24 12:23 Delta Troponin T 195.1 ABS# (0-10) H* 01/02/24 12:23 C-Reactive Protein 3.0 mg/L (0.0-4.9) 01/02/24 10:25 NT-Pro-B Natriuret Pep 58 pg/mL (0-125) 01/02/24 10:25 Total Protein 7.0 g/dL (6.6-8.7) 01/02/24 10:25 Albumin 4.3 g/dL (3.5-5.2) 01/02/24 10:25 Globulin 2.7 g/dL (1.3-4.6) 01/02/24 10:25 Vitamin B12 319 pg/mL (232-1245) 01/02/24 12:23 Procalcitonin 0.15 ng/mL (0-0.5) 01/02/24 12:23 TSH 1.27 uIU/mL (0.27-4.20) 01/02/24 12:23 Urine Color Yellow (Yellow) 01/02/24 14:18 Urine Appearance Clear (CLEAR) 01/02/24 14:18 Urine pH 5.5 (5-7) 01/02/24 14:18 Ur Specific [place] 1.059 (1.005-1.030) H 01/02/24 14:18 Urine Protein Trace (Negative) A 01/02/24 14:18 Urine Glucose (UA) Negative (Normal) 01/02/24 14:18 Urine Ketones Negative (Negative) 01/02/24 14:18 Urine Blood Negative (Negative) 01/02/24 14:18 Urine Nitrate Negative (Negative) 01/02/24 14:18 Urine Bilirubin Negative (Negative) 01/02/24 14:18 Urine Urobilinogen 1.0 mg/dL (Negative) 01/02/24 14:18 Ur Leukocyte Esterase Negative (Negative) 01/02/24 14:18 Urine RBC 0-2 /hpf (0-2) 01/02/24 14:18 Urine WBC 0-5 /hpf (0-5) 01/02/24 14:18 Ur Squamous Epith Cells 0-5 /hpf (0-5) 01/02/24 14:18 Amorphous Sediment Not Reportable 01/02/24 14:18 Urine Bacteria None seen /hpf (NONE) 01/02/24 14:18 Hyaline Casts 1.65 /lpf 01/02/24 14:18 Urine Opiates Screen Negative ng/mL (Negative) 01/02/24 14:18 Ur Barbiturates Screen Negative ng/mL (Negative) 01/02/24 14:18 Ur Phencyclidine Scrn Negative ng/mL (Negative) 01/02/24 14:18 Ur Amphetamines Screen Negative ng/mL (Negative) 01/02/24 14:18 U Benzodiazepines Scrn Negative ng/mL (Negative) 01/02/24 14:18 Urine Cocaine Screen Negative ng/mL (Negative) 01/02/24 14:18 U Marijuana (THC) Screen Positive ng/mL (Negative) H 01/02/24 14:18 Ethyl Alcohol < 10 mg/dL (0-10) 01/02/24 14:29 EKG 1: My Interpretation: Normal sinus rhythm with nonspecific T wave changes in the anterolateral leads. Features of incomplete right bundle branch block. Other data: The echocardiogram from today patient had an echocardiogram done which revealed a moderate hypokinesis of the LV apex involving the apical inferior, apical lateral and apical anterior segments. LV ejection fraction around 40 to 45%. Chest x-ray showed Small right apical pneumothorax. No acute lung infiltrate A&P Assessment and plan (1) Non-ST elevated myocardial infarction: Patient has clinical features of an unstable angina complicated with non-ST elevation myocardial infarction. His echocardiographic evidence of wall motion abnormalities may suggest three-vessel disease versus involvement of a wraparound LAD. In view of his ongoing symptoms, he may benefit from a cardiac catheterization. (2) Accelerated hypertension: The blood pressure is currently elevated. Patient apparently has not taken his blood pressure medication this morning. May go ahead and give him the amlodipine 5 mg p.o. now and daily. Continue the IV nitro and the metoprolol. (3) Tobacco dependence: Patient strongly advised to quit smoking. (4) Alcohol dependence: Patient requires lifestyle modification. Understands the cardiovascular implications. Qualifiers: Substance use status: uncomplicated Qualified Code(s): F10.20 - Alcohol dependence, uncomplicated (5) Major depressive disorder, recurrent: May continue the current management. Qualifiers: Active/Remission status: remission status unspecified Qualified Code(s): F33.9 - Major depressive disorder, recurrent, unspecified (6) COPD (chronic obstructive pulmonary disease): Continue on the current treatment. Qualifiers: COPD type: unspecified COPD Qualified Code(s): J44.9 - Chronic obstructive pulmonary disease, unspecified Plan Lipid profile is not known. Will go ahead and do a liver profile on the blood in the lab. Start the patient on Lipitor 80 mg p.o. now and daily. Plavix 300 mg p.o. now followed by 75 mg p.o. daily. Continue the baby aspirin. Metoprolol 25 mg p.o. twice daily Amlodipine 5 mg p.o. now and daily. Subcu Lovenox. Will review the echocardiogram. Based on the clinical progress and the results of the above, further recommendations will be made. Thank you for the opportunity to evaluate this patient and make these recommendations Consult Attestations 2 Medical Necessity Statement: Patient requires continued hospital stay for close monitoring and further management Coding Level of Care Code 70068 Diagnoses Non-ST elevated myocardial infarction I21.4 Accelerated hypertension I10 Tobacco dependence F17.200 Uncomplicated alcohol dependence F10.20 Substance use status: uncomplicated Recurrent major depressive disorder, remission status unspecified F33.9 Active/Remission status: remission status unspecified Chronic obstructive pulmonary disease, unspecified COPD type J44.9 COPD type: unspecified COPD
[2024-01-02] MEDS: amlodipine 5 mg Tablet PO (16:15)
--- NOTE | 2024-01-02 16:32 | PC.NURSE ---
continues to have small amt chest pain increasing nitro at this time and po meds given labor relations director crew called in
--- NOTE | 2024-01-02 16:44 | XACV_ITS ---
Exam Room: 2 Ht: 180 cm Wt: 100 kg BSA: 2.26 m2 Gender: Male : 1970 Any Known Allergies: No known allergies Exam Priority: Routine Procedure(s): Procedure Description: Diagnostic procedure Procedure Description: PCI procedure Procedure Description: Left Heart Catheterization Procedure Description: Left ventriculography Procedure Description: Coronary IVUS Procedure Description: Drug Eluting Coronary Stent Procedure Description: PTCA Procedure Description: Miscellaneous Procedure Description: ACT Procedure Description: Coronary Angiography Lev LÓPEZ; Diagnostic Cath Status: Urgent Diagnostic Findings * The left main is a short vessel with no significant lesions. * The left anterior descending artery is a medium caliber vessel which appears to wraparound the LV apex minimally. The proximal left anterior descending artery was found to have a 40% tapering narrowing towards the origin of the first diagonal branch. A filling defect was noted at the takeoff of the first diagonal branch. The rest of the vessel was found to have no significant lesions.. * The left circumflex artery is a medium caliber nondominant vessel which gives of a high obtuse marginal branch. This branch was found to have around 40% tubular narrowing proximally. No significant stenotic lesions. * The right coronary artery is a medium caliber dominant vessel which was found to have minimal intimal irregularities in the mid and distal segments. No significant stenotic lesions were noted. PCI Status: Urgent PCI Indication: NSTE - ACS Interventional Findings * Procedure detail: We engaged left main artery with XB 3.5 guide catheter. IV heparin was administered to maintain the anticoagulation. LAD stenosis was crossed with 0.014 run-through guidewire. After wiring patient blood flow in LAD decreased significantly to AFIA I flow. This was consistent with distal embolization of thrombus from the proximal LAD. IVUS was performed that showed significant plaque burden with plaque rupture noted. MLA was 3mm2. We proceeded with predilation of the proximal LAD with 3.0 x 12 mm semicompliant balloon. This was followed by placement of 4.0 x 18 mm resolute [place] drug-eluting stent. IVUS was performed that showed some underexpansion in mid segment. Stent was postdilated with 4.0 x 12 mm NC balloon. At this time final angiogram was performed that showed excellent stent expansion, no residual stenosis and AFIA-3 flow. Guidewire and guide catheter were removed. Patient left the Principal Systems Architect in a stable condition.. * Proximal Left Anterior Descending: treated with a AB TREK 3.00X12 RX BALLOON, JAREK R DEREK 4.0X18 MEGHAN, and JAREK BENITEZ EUPHORA RX [id number] BALLOON. 0% residual stenosis, AFIA: 3 flow. Conclusions 1. 53-year-old white male with a history of hypertension, smoking abuse and alcohol abuse, presented with acute onset of chest pain. Elevated troponin T, suggesting acute non-ST elevation myocardial infarction. Echocardiogram revealed diffuse hypokinesis of the LV apex. For further evaluation of his coronary status, a cardiac catheterization was recommended. Patient underwent left heart catheterization with left and right coronary angiogram and LV angiogram today. The findings are as follows. 2. 1. Short left main with no significant lesions.2. Tapering narrowing of around 50% in the proximal LAD. A filling defects are noted distal to this area involving the origin of the first diagonal branch.3. 40% tubular lesion in the first obtuse marginal branch of the circumflex artery.4. Mild disease in the dominant right coronary artery.5. Multiple wall motion normalities with a diminished LV ejection fraction of 40%. LVEDP of 21 mmHg. 3. I reviewed and discussed the cardiac catheterization data with Dr. Ferro. It was thought to be appropriate to consider IVUS of the proximal LAD and consider PCI, if appropriate. Dr. Ferro concurred with this plan and took over further management of this patient at this point. 4. S/p successful revascularization of proximal LAD with 1 stent after confirmation of significant plaque and plaque rupture with thrombus seen in the proximal LAD. 5. Proximal Left Anterior Descending was treated with a Balloon, Drug Eluting Stent, and Balloon. Recommendations * Dual antiplatelet therapy with aspirin and plavix for atleast 1 year. * High intensity statin therapy. * Outpatient cardiology follow up in 2-4 weeks. Interventional RX Recommendation: PCI w/o planned CABG Diagnostic RX Recommendation: PCI w/o planned CABG Ventriculography Ejection Fraction: 40.0 % LV EDP: 21 mmHg Left Ventriculography Findings: * LV gram was performed in the DUGAN projection. The LV cavity appeared to be normal size. There is moderate diffuse hypokinesia of the mid and apical anterior and apical inferior wall segment. Overall ejection fraction was 40%. Pressures Phase:Rest AO : 123 / 86 ( 102 ) @ 6:13:00 PM 119 / 98 ( 109 ) @ 6:15:00 PM 121 / 98 ( 111 ) @ 6:17:00 PM 145 / 88 ( 115 ) @ 6:25:00 PM 147 / 89 ( 116 ) @ 6:25:00 PM 112 / 78 ( 94 ) @ 6:34:00 PM 116 / 85 ( 100 ) @ 6:37:00 PM 123 / 81 ( 100 ) @ 6:45:00 PM 115 / 80 ( 97 ) @ 6:49:00 PM LV : 151 / 0 / 20 @ 6:24:00 PM 156 / 8 / 33 @ 6:25:00 PM 157 / 7 / 33 @ 6:25:00 PM Valves Phase:DefaultPhase AV : 13.0 @ 5:56:17 PM AV Mean Gradient: 12.0 @ 5:56:17 PM Clinical Evaluation EBL: 5mL-10mL Procedural Details Pre-Procedure Time Out. Identified patient by full name and date of as verbalized by the patient/guarantor. Does the consent match the physician's order: Yes. Accurate & Complete Informed Consent: Yes. Inpatient/Outpatient History & Physical on Chart: Yes. If H&P is completed, is and addenduem needed: No; If yes, is the addendum complete: N/A. Visualize and Verify Site with Patient/Guarantor: N/A. Relevant Radiology Images available: Yes. Pre-op teaching completed and patient verbalized understanding. The risks, benefits, and alternatives of sedation and/or procedure were discussed by physician. The patient agrees to continue. Procedure started. [facility] Clinical Fraility Score: 3: Managing Well. Principal Systems Architect Indications: ACS > 24 hours. Chest Pain Symptom Assessment: Atypical Angina. Current diagnosis: NSTEMI. PERRLA. Strong, equal hand assembly lead person bilaterally. Lungs clear x 5 lobes. IV Site on Arrival: 18 gauge in the left anticubital. IV Fluids: 0.9% NaCl at KVO. 0 mL infused prior to labeling associate. Oxygen started at 2liters/min via nasal canula. right groin was prepped with chloroprep then draped in the usual sterile fashion. right radial was prepped with chloroprep then draped in the usual sterile fashion. Baseline sample Acquired. HR: 88 BPM. Current Diagnosis : NSTEMI. Physician arrived. Physician scrubbed in. Immediate Pre-Procedure Time Out. Correct Patient: Yes; Correct Procedure: Yes; Correct Site: Yes; Correct Patient Position: Yes; Correct Supplies: Yes; Dried Flammable Prep: Yes; Blood Products Available: N/A;. Lidocaine 1% infiltrated to the right radial. Arterial access obtained. A 5 russian Eros catheter in over wire. Multiple views taken of left coronary artery. Catheter redirected to the RCA. Catheter removed over the exchange wire. A 5 russian JR4 catheter in over wire. Multiple views taken of right coronary artery. Dr. Ferro called to review films. Catheter removed over the exchange wire. A 5 russian Angled Pig catheter in over wire. EDP Sample taken: LV 151/-1,20; HR: 88 BPM; SpO2: 96%. LV gram performed in DUGAN @ 10 mL/second for a total of 30 mL. EDP Sample taken: LV 156/8,33; HR: 90 BPM; SpO2: 98%. Pullback taken: LV 157/7,33; AO 145/88(115); Mean: 12mmHg, Peak to Peak: 13mmHg, SEP: 20sec/min; HR: 89 BPM; SpO2: 97%. Catheter removed over the exchange wire. Physician scrubbed out. Physician review of cine films. Dr. Ferro arrived to review films. Dr. Ferro scrubbed in to perform intervention. 6 russian XB 3.5 guide catheter was inserted over the wire. IVUS catheter inserted and advanced to the prox LAD. Runthrough guidewire was advanced through the guide catheter to lesion in the prox LAD. IVUS measurements obtained. IVUS catheter out OTW. Inflation number : 1 A AB TREK 3.00X12 RX BALLOON was prepped and advanced across the Prox LAD , then inflated to 8 OMI for 0:08 seconds. Balloon out. Inflation Number : 2 A JAREK Montalvo DEREK 4.0X18 MEGHAN -Lot Number# _[id number] EXP: 07/15/2026 was prepped and advanced across the Prox LAD. The stent was deployed at 12 OMI for 0:18 seconds. Stent balloon out over wire. IVUS catheter inserted and advanced to the prox LAD. IVUS measurements obtained. IVUS catheter out OTW. Inflation number : 3 A JAREK BENITEZ EUPHORA RX [id number] BALLOON was prepped and advanced across the Prox LAD , then inflated to 14 OMI for 0:10 seconds. Balloon out. ACT drawn. Results 382 seconds. Therapeutic limits - pre-heparin administration 90-150 seconds and monitoring heparin during a vascular procedure >250 seconds. Results checked. Wire out. Guide catheter out. A TR Band was successful obtaining hemostatsis at the Right Radial artery insertion site. Vital chart was stopped. Post Procedure: Pulses reassessed and unchanged. PERRLA. Strong, equal hand assembly lead person bilaterally. No VTE prophylaxis required. Medication's Wasted: Nitro = 49.6 mcg. Medication's Wasted: Lidocaine 1% = 15 mL. Total IV fluids: 100 mL. Post-op diagnosis: Stent to LAD. Complications: None. Estimated blood loss: 5mL-10mL. Responsiveness - Normal response to verbal stimuli; alert and oriented, PERRLA. Airway - Unaffected, no intervention required; spontaneous ventilation. Circulation: W/N/L, pulses unchanged. Nausea/Vomiting: No. Procedure completed. Patient transferred by bed to ICU. Access Site Site: Right Radial artery Sheath Size: 6 Fr Hemostasis Method: TR Band Hemostasis Success: Successful Procedure Medications Start: 5:04 PM Stop: 5:04 PM Medication: Versed Amount: 1 mg Route: I.V. Start: 5:04 PM Stop: 5:04 PM Medication: Fentanyl Amount: 50 mcg Route: I.V. Start: 5:09 PM Stop: 5:09 PM Medication: Versed Amount: 1 mg Route: I.V. Start: 5:11 PM Stop: 5:11 PM Medication: Verapamil Amount: 5 mg Route: I.A. Start: 5:11 PM Stop: 5:11 PM Medication: Nitrogylcerin Amount: 200 mcg Route: I.A. Start: 5:13 PM Stop: 5:13 PM Medication: Fentanyl Amount: 25 mcg Route: I.V. Start: 5:20 PM Stop: 5:20 PM Medication: Heparin Amount: 2000 units Route: I.V. Start: 5:21 PM Stop: 5:21 PM Medication: Fentanyl Amount: 25 mcg Route: I.V. Start: 5:33 PM Stop: 5:33 PM Medication: Heparin Amount: 6000 units Route: I.V. Start: 5:42 PM Stop: 5:42 PM Medication: Versed Amount: 1 mg Route: I.V. Start: 5:43 PM Stop: 5:43 PM Medication: Heparin Amount: 1000 units Route: I.V. Start: 5:46 PM Stop: 5:46 PM Medication: Nitrogylcerin Amount: 200 mcg Route: I.A. Start: 5:49 PM Stop: 5:49 PM Medication: Plavix Amount: 300 mg Route: P.O. I, the attending physician, have reviewed and verified all procedure medications. Yes, all medications given per verbal order History/Risk Factors Hypertension: Yes Dyslipidemia: No Peripheral Arterial Disease (PAD): No Myocardial Infarction (WI): No Obesity: No Renal Disease: No Prior Interventions PCI: No CABG: No Valve Surgery: No Report Signatures Interventional Workflow Finalized by Sai Ferro MD on 01/03/2024 08:36 PM Diagnostic Workflow Finalized by Dr Twin Ohara MD [facility] on 01/03/2024 06:48 PM
--- NOTE | 2024-01-02 16:45 | ECG_ITS ---
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 Measurements Intervals [place] Rate: 85 P: 34 OH: 154 QRS: 26 QRSD: 102 T: 66 QT: 360 QTc: 429 Interpretive Statements SINUS RHYTHM POSSIBLE RIGHT VENTRICULAR CONDUCTION DELAY [RSR (QR) IN V1/V2] NONSPECIFIC ST ELEVATION [0.05+ mV ST ELEVATION] Compared to ECG 01/02/2024 12:56:13 ST (T wave) deviation now present T-wave abnormality no longer present Electronically Signed On 01-02-2024 18:54:37 CDT by Twin Ohara M.D. [id number]
--- NOTE | 2024-01-02 16:46 | W.PM.OPSUD ---
Surgery/Procedure H&P Update DATE OF PROCEDURE: January 02, 2024 DATE H&P PERFORMED: 01/02/24 H&P UPDATE INFORMATION: I have reviewed H&P completed within last 30 days, I have examined patient prior to procedure and No changes to prior documentation PREOP DIAGNOSIS: ASHD/ NSTEMI PRIMARY INDICATION FOR PROCEDURE: Patient was unstable anginal symptoms and features of non-ST elevation myocardial infarction. LV dysfunction with wall motion normalities by echocardiogram. PLANNED PROCEDURE: Left heart catheterization with coronary angiogram and possible PCI PATIENT REASSESSED PRIOR TO SEDATION, WITH NO CHANGE NOTED: Yes PHYSICAL EXAM: alert, oriented x 3, clear to auscultation bilaterally, regular rate & rhythm and operative site marked AIRWAY EVAL/ANESTHESIA PLAN: normal airway, Monitored Anesthesia, Local Anesthesia, Risks, benefits & alternatives of sedation and/or procedure discussed and Patient agrees to continue as planned
--- NOTE | 2024-01-02 17:06 | PC.RESP ---
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 unable to do ekg at this time
[2024-01-02 17:07] LABS: Troponin 5 6HR 608.2 ng/L (0-15); Troponin 5 6HR Delta 579.2 ng/L (0-12)
--- NOTE | 2024-01-02 18:15 | PC.NURSE ---
back from agriculture laboratory technician no distress at this time tr band right wrist 15cc air
--- NOTE | 2024-01-02 18:45 | PC.NURSE ---
released 1cc air site no hematoma
[2024-01-02] MEDS: budesonide 0.5 mg/2 mL Neb INHALATION (19:14)
[2024-01-02] MEDS: levalbuterol 0.63 mg/3 mL Neb INHALATION (19:14)
[2024-01-02] MEDS: ipratropium 0.5 mg/2.5 mL Neb INHALATION (19:14)
--- NOTE | 2024-01-02 20:45 | PC.NURSE ---
Spoke with regarding patient with dose of metoprolol due at 2100 but had received first dose at 15:27. Asked Dr Callahan if we should give 9pm dose or push next dose due to just receiving dose late. said change order to q12 so next dose with be due at 3am.
--- NOTE | 2024-01-02 21:32 | PC.NURSE ---
TR Band air removed according to protocol. TR band was removed at this time, dry sterile dressing applied. No hematoma present. Patient reports that radial site is a little sore. Right arm elevated on pillow, offered tylenol for comfort but patient declined at this time.
[2024-01-03] VITALS (15 sets, daily range): BP systolic 112–150; BP diastolic 62–91; PULSE 61–86; RESP 12–22; TEMP 36.6; O2SAT 90–97; BMI 32.3
[2024-01-03] MEDS: sodium chloride 0.9% 1,000 ML 75 ML IV (02:18)
[2024-01-03] MEDS: metoprolol tartrate 25 mg Tablet PO (02:18)
[2024-01-03] MEDS: enoxaparin 100 mg/mL Syringe SUBCUT (02:18)
[2024-01-03] MEDS: levalbuterol 0.63 mg/3 mL Neb INHALATION ×2 (02:46→08:16)
[2024-01-03] MEDS: ipratropium 0.5 mg/2.5 mL Neb INHALATION ×2 (02:46→08:16)
[2024-01-03 04:19] LABS: Basophils # 0.1 10^3/uL (0.0-0.1); Eosinophils # 0.5 10^3/uL (0.0-0.8); Eosinophils % 3.8 %; Hematocrit 47.7 % (37-53); Lymphocytes # 2.9 10^3/uL (0.8-4.8); Lymphocytes % 23.9 %; Mean Corpuscular HGB Conc 32.7 g/dL (30-55); Mean Corpuscular Hemoglobin 30.9 pg (27-33); Mean Corpuscular Volume 94.5 fl (82-101); Mean Platelet Volume 10.7 fL (7.4-10.4); Monocytes # 0.8 10^3/uL (0.2-0.9); Monocytes % 6.5 %; Neutrophils # 7.88 10^3/uL (1.8-7.7); Neutrophils % 64.1 %; Nucleated Red Blood Cells % 0 %; Platelet Count 546 10^3/cmm (157-399); Red Blood Count 5.05 10^6/uL (3.85-5.65); Red Cell Distribution Width 13.8 % (12.1-15.1)
[2024-01-03 04:47] LABS: Estmated Average Glucose 126
[2024-01-03 04:57] LABS: Alanine Aminotransferase 27 U/L (0-41); Albumin Level 3.8 g/dL (3.5-5.2); Alkaline Phosphatase 76 U/L (40-130); Anion Gap 16.9 (5-19); Aspartate Amino Transferase 27 U/L (0-40); Blood Urea Nitrogen 9 mg/dL (6-20); Calcium 8.4 mg/dL (8.5-10.5); Carbon Dioxide 20 mmol/L (22-29); Chloride 103 mmol/L (98-107); Globulin 2.5 g/dL (1.3-4.6); Glomerular Filtration Rate 87.9 mL/min (90-130); Glucose 107 mg/dL (65-115); Osmolality Calculated 281 mOsm/kg (285-295); Potassium 3.9 mmol/L (3.5-5.1); Sodium 136 mmol/L (136-145); Total Bilirubin 0.6 mg/dL (0.15-1.2); Total Protein 6.3 g/dL (6.6-8.7)
[2024-01-03 05:00] LABS: Cholesterol 161 mg/dL (0-200); HDL Cholesterol 52 mg/dL (60-100); LDL Cholesterol Calculated 82 mg/dL (50-129); LDL HDL Ratio 1.58 RATIO (0.00-3.22); Triglycerides 136 mg/dL (0-150)
[2024-01-03 05:05] LABS: Folate Level 9.8 ng/mL (4.5-32.2)
--- NOTE | 2024-01-03 06:42 | PC.NURSE ---
Messaged regarding patients daily plavix 75mg has not been ordered to start today. Asked if she wanted to give order for it to start today or if she wanted it to be addressed by cardiology when they round today. Dr. Callahan said to be addressed by day team.
--- NOTE | 2024-01-03 07:33 | PC.NURSE ---
up in room put pants on right wrist time on hematoma noted no chest pain states feels great
[2024-01-03] MEDS: budesonide 0.5 mg/2 mL Neb INHALATION (08:16)
[2024-01-03] MEDS: multivitamin therapeutic Tablet 1 TAB PO (09:24)
[2024-01-03] MEDS: thiamine 100 mg Tablet PO (09:24)
[2024-01-03] MEDS: clopidogrel 75 mg Tablet PO (09:24)
[2024-01-03] MEDS: aspirin 81 mg EC Tablet PO (09:24)
[2024-01-03] MEDS: nicotine 21 mg Patch 1 PATCH TRANSDERMA (09:24)
[2024-01-03] MEDS: fluoxetine 20 mg Capsule PO (09:24)
[2024-01-03] MEDS: folic acid 1 mg Tablet PO (09:24)
[2024-01-03] MEDS: ARIPiprazole 2 mg Tablet PO (09:24)
--- NOTE | 2024-01-03 09:53 | PM.DCS ---
Discharge Providers Date of Admission: 01/02/24 13:33 Date of Discharge: January 03, 2024 Attending Provider at Admission: Krishna Henao MD Attending Provider at Discharge: Krishna Henao MD Consults: Cardiology: Dr. Ohara Primary Care Provider: Augusto Kelly MD Diagnoses at Discharge Discharge Diagnosis (1) Non-ST elevated myocardial infarction: Status: Acute (2) Accelerated hypertension: Status: Acute (3) COPD (chronic obstructive pulmonary disease): Status: Acute Qualifiers: COPD type: unspecified COPD Qualified Code(s): J44.9 - Chronic obstructive pulmonary disease, unspecified (4) Tobacco dependence: Status: Acute (5) Alcohol dependence: Status: Acute Qualifiers: Substance use status: uncomplicated Qualified Code(s): F10.20 - Alcohol dependence, uncomplicated (6) Left ventricular systolic dysfunction (LVSD) without heart failure: Status: Acute Reason for Visit Reason for Visit: chest pain Hospital Course Hospital Course Shashi Hough is a 53 year old male Chronic smoker, hypertensive, COPD who presents to the ER today because of bandlike chest pain rating to neck which started around 10 AM relieved after nitro. Patient denies having any family or personal history of CAD or stroke in the past. Drinks up to 2 beer every evening with last compression yesterday evening. Denies any nausea vomiting, headache for now. In the ER he was found to have baseline troponin of 29 with a delta of 195 in 2 hours. On examination in ICU he was still complaining of chest heaviness and some chest pain on the right side though better than when he had come to the ER. Was found to have a systolic blood pressure of 170/100 mmHg. Patient was admitted to the hospital further evaluation and management of non-ST elevation [place] along with hypertensive urgency. Cardiology was consulted. Started on treatment as per ACS protocol and IV nitrate. He underwent cardiac angiogram on 01/01 in which he underwent MEGHAN stent placement to proximal LAD(complete cath report not currently available). He underwent echocardiogram which showed an EF of 45% with moderate hypokinesia of mid and apical septum, inferior wall and apical segments with grade 1 diastolic dysfunction. He responded well to the treatment. Patient has remained chest pain-free. He has been discharged medically stable condition on dual antiplatelet therapy, statin, metoprolol and losartan. He is to follow-up with his primary care provider within next 1 week and with cardiology team within next 2 weeks. He was advised to stop smoking and alcohol consumption. Physical Exam Narrative: General: No acute distress, AO x3 HEENT: PERRLA, pupils bilaterally equal and reactive Chest: Normal vesicular breath sounds, no added sounds, equal good air entry bilaterally CVS: S1-S2 regular, no murmurs, no tachycardia, no gallops, no rubs Abdomen: Soft, nontender, no organomegaly, bowel sounds present Neuro: No focal deficits, no facial deformity, AO x3, power 5/5 in all limbs Discharge Data Studies Completed and Pending Completed Studies During Hospitalization Category Date Time Status CT angio chest PE protcl 70648 Stat Cat Scan 01/02/24 11:41 Completed XR chest 1V portable 20482 Stat Exams 01/02/24 10:45 Completed CV. echo complete* [id number] Routine Ultrasound 01/02/24 13:34 Completed Pending at discharge Category Date Time Status CASE RESOURCE MANAGER request for service Routine Exams 01/02/24 16:44 Taken Radiology Impressions Chest X-Ray 01/02/24 10:45 IMPRESSION: Small right apical pneumothorax. ADDENDUM: 01/02/24 1142 COMMENT: THIS REPORT CONTAINS FINDINGS THAT MAY BE CRITICAL TO PATIENT CARE. The exam findings were verbally communicated by me to ROME SHIELDS via telephone conference at 11:39 AM CDT on 01/02/2024. The findings were acknowledged and understood. Chest CTA 01/02/24 11:41 IMPRESSION: No CT evidence of pulmonary embolus or other acute abnormality. COMMENTS: The presence of pulmonary emphysema on CT is an independent risk factor for lung cancer. In the absence of a history or active diagnosis of lung cancer, it is recommended that this patient with emphysema be evaluated for enrollment in a low dose CT lung cancer screening program. Echocardiogram: CONCLUSIONS Moderate hypokinesia of the mid and apical septum, inferior wall and apical segments. LV ejection fraction around 40 to 45% .Grade I/IV diastolic dysfunction (abnormal relaxation filling pattern), normal to mildly elevated filling pressures. Mildly increased left atrial size. No intracardiac masses. No pericardial effusion No similar previous studies are available for comparison Dr Twin Ohara MD [facility] (Electronically Signed) Final Date: 02 January 2024 16:58 S Laboratory Results WBC 12.30 10^3/uL (3.29-11.43) H 01/03/24 02:43 RBC 5.05 10^6/uL (3.85-5.65) 01/03/24 02:43 Hgb 15.60 g/dL (11.27-16.99) 01/03/24 02:43 Hct 47.7 % (37-53) 01/03/24 02:43 MCV 94.5 fl (82-101) 01/03/24 02:43 MCH 30.9 pg (27-33) 01/03/24 02:43 MCHC 32.7 g/dL (30-55) 01/03/24 02:43 RDW 13.8 % (12.1-15.1) 01/03/24 02:43 Plt Count 546 10^3/cmm (157-399) H 01/03/24 02:43 MPV 10.7 fL (7.4-10.4) H 01/03/24 02:43 Neut % (Auto) 64.1 % 01/03/24 02:43 Lymph % (Auto) 23.9 % 01/03/24 02:43 [place] % (Auto) 6.5 % 01/03/24 02:43 Eos % (Auto) 3.8 % 01/03/24 02:43 Baso % (Auto) 1.0 % 01/03/24 02:43 Neut # (Auto) 7.88 10^3/uL (1.8-7.7) H 01/03/24 02:43 Lymph # (Auto) 2.9 10^3/uL (0.8-4.8) 01/03/24 02:43 [place] # (Auto) 0.8 10^3/uL (0.2-0.9) 01/03/24 02:43 Eos # (Auto) 0.5 10^3/uL (0.0-0.8) 01/03/24 02:43 Baso # (Auto) 0.1 10^3/uL (0.0-0.1) 01/03/24 02:43 Nucleated RBC % (auto) 0 % 01/03/24 02:43 Nucleated RBCs # 0.0 /100WBC 01/03/24 02:43 Sodium 136 mmol/L (136-145) 01/03/24 02:43 Potassium 3.9 mmol/L (3.5-5.1) 01/03/24 02:43 Chloride 103 mmol/L (98-107) 01/03/24 02:43 Carbon Dioxide 20 mmol/L (22-29) L 01/03/24 02:43 Anion Gap 16.9 (5-19) 01/03/24 02:43 BUN 9 mg/dL (6-20) 01/03/24 02:43 Creatinine 0.9 mg/dL (0.7-1.2) 01/03/24 02:43 GFR Calculation 87.9 mL/min (90-130) L 01/03/24 02:43 Glucose 107 mg/dL (65-115) 01/03/24 02:43 Estimat Average Glucose 126 01/03/24 02:43 Hemoglobin A1c 6.0 % (4.0-6.0) 01/03/24 02:43 Calculated Osmolality 281 mOsm/kg (285-295) L 01/03/24 02:43 Calcium 8.4 mg/dL (8.5-10.5) L 01/03/24 02:43 Phosphorus 3.0 mg/dL (2.5-4.5) 01/03/24 02:43 Magnesium 2.0 mg/dL (1.7-2.3) 01/03/24 02:43 Iron 68 ug/dL (59-158) 01/02/24 12:23 TIBC 210 mcg/dl 01/02/24 12:23 % Saturation 32.3 % (20-50) 01/02/24 12:23 Unsat Iron Binding 142 ug/dL (112-347) 01/02/24 12:23 Total Bilirubin 0.6 mg/dL (0.15-1.2) 01/03/24 02:43 AST 27 U/L (0-40) 01/03/24 02:43 ALT 27 U/L (0-41) 01/03/24 02:43 Alkaline Phosphatase 76 U/L (40-130) 01/03/24 02:43 Troponin T Baseline 29 ng/L (0-15) H 01/02/24 10:25 Troponin T 120 Minute 224.1 ng/L (0-15) H 01/02/24 12:23 Delta Troponin T 195.1 ABS# (0-10) H* 01/02/24 12:23 Troponin T Hi Sens 6Hr 608.2 ng/L (0-15) H 01/02/24 16:24 Troponin T Hi Sens 6Hr Delta 579.2 ng/L (0-12) H* 01/02/24 16:24 C-Reactive Protein 3.0 mg/L (0.0-4.9) 01/02/24 10:25 NT-Pro-B Natriuret Pep 58 pg/mL (0-125) 01/02/24 10:25 Total Protein 6.3 g/dL (6.6-8.7) L 01/03/24 02:43 Albumin 3.8 g/dL (3.5-5.2) 01/03/24 02:43 Globulin 2.5 g/dL (1.3-4.6) 01/03/24 02:43 Triglycerides 136 mg/dL (0-150) 01/03/24 02:43 Cholesterol 161 mg/dL (0-200) 01/03/24 02:43 LDL Cholesterol, Calc 82 mg/dL (50-129) 01/03/24 02:43 HDL Cholesterol 52 mg/dL (60-100) L 01/03/24 02:43 LDL/HDL Ratio 1.58 RATIO (0.00-3.22) 01/03/24 02:43 Cholesterol/HDL Ratio 3.10 mg/dL (1.0-5.00) 01/03/24 02:43 Vitamin B12 319 pg/mL (232-1245) 01/02/24 12:23 Folate 9.8 ng/mL (4.5-32.2) 01/03/24 02:43 Procalcitonin 0.15 ng/mL (0-0.5) 01/02/24 12:23 TSH 1.27 uIU/mL (0.27-4.20) 01/02/24 12:23 Urine Color Yellow (Yellow) 01/02/24 14:18 Urine Appearance Clear (CLEAR) 01/02/24 14:18 Urine pH 5.5 (5-7) 01/02/24 14:18 Ur Specific [place] 1.059 (1.005-1.030) H 01/02/24 14:18 Urine Protein Trace (Negative) A 01/02/24 14:18 Urine Glucose (UA) Negative (Normal) 01/02/24 14:18 Urine Ketones Negative (Negative) 01/02/24 14:18 Urine Blood Negative (Negative) 01/02/24 14:18 Urine Nitrate Negative (Negative) 01/02/24 14:18 Urine Bilirubin Negative (Negative) 01/02/24 14:18 Urine Urobilinogen 1.0 mg/dL (Negative) 01/02/24 14:18 Ur Leukocyte Esterase Negative (Negative) 01/02/24 14:18 Urine RBC 0-2 /hpf (0-2) 01/02/24 14:18 Urine WBC 0-5 /hpf (0-5) 01/02/24 14:18 Ur Squamous Epith Cells 0-5 /hpf (0-5) 01/02/24 14:18 Amorphous Sediment Not Reportable 01/02/24 14:18 Urine Bacteria None seen /hpf (NONE) 01/02/24 14:18 Hyaline Casts 1.65 /lpf 01/02/24 14:18 Urine Opiates Screen Negative ng/mL (Negative) 01/02/24 14:18 Ur Barbiturates Screen Negative ng/mL (Negative) 01/02/24 14:18 Ur Phencyclidine Scrn Negative ng/mL (Negative) 01/02/24 14:18 Ur Amphetamines Screen Negative ng/mL (Negative) 01/02/24 14:18 U Benzodiazepines Scrn Negative ng/mL (Negative) 01/02/24 14:18 Urine Cocaine Screen Negative ng/mL (Negative) 01/02/24 14:18 U Marijuana (THC) Screen Positive ng/mL (Negative) H 01/02/24 14:18 Ethyl Alcohol < 10 mg/dL (0-10) 01/02/24 14:29 Vitals Last Vital Signs Temp 97.8 F 01/03/24 04:00 Pulse 65 01/03/24 08:35 Resp 16 01/03/24 08:16 BP 139/91 01/03/24 08:00 Pulse Ox 94 01/03/24 08:16 O2 Del Method Room Air 01/03/24 08:16 O2 Flow Rate 2 01/03/24 02:51 Discharge Plan Discharge Patient Disposition: Home Condition: Stable Prescriptions: New atorvastatin 40 mg Tablet 80 mg PO BEDTIME Qty: 60 0RF clopidogrel 75 mg Tablet 75 mg PO DAILY Qty: 30 0RF aspirin 81 mg Tablet,Delayed Release (Dr/Ec) 81 mg PO DAILY Qty: 30 0RF metoprolol tartrate 25 mg Tablet 25 mg PO BID Qty: 60 0RF losartan 25 mg tablet 25 mg PO DAILY Qty: 30 0RF Continued pantoprazole 40 mg tablet,delayed release (DR/EC) 120 mg PO BEDTIME albuterol sulfate 90 mcg/actuation HFA aerosol inhaler 1 puff INHALATION Q6H PRN (Reason: Shortness Of Breath) prazosin 2 mg capsule 60 mg PO BEDTIME aripiprazole 2 mg tablet 2 mg PO DAILY Trelegy Ellipta 100-62.5-25 mcg blister with device 1 inh INHALATION DAILY fluoxetine 20 mg Capsule 20 mg PO DAILY 30 Days Qty: 30 1RF folic acid 1 mg Tablet 1 mg PO DAILY 30 Days Qty: 30 1RF thiamine mononitrate (vit B1) [Vitamin B-1 (mononitrate)] 100 mg Tablet 100 mg PO DAILY 30 Days Qty: 30 1RF trazodone 50 mg Tablet 50 mg PO BEDTIME PRN (Reason: Sleep) 30 Days Qty: 30 1RF Discontinued amlodipine 5 mg tablet 5 mg PO DAILY Discharge Orders: Discharge Order (Routine); Ordered 01/03/24 Ordered By: Krishna Henao Referrals: Twin Ohara MD [Physician] - 1 month Nirali Yadav FNP [Nurse Practitioner] - 2 weeks Augusto Kelly MD [Primary Care Provider] - 1 week Discharge Diet: Regular and Cardiac Discharge Activity: Resume usual activity and Increase activity as tolerated Patient Instructions: Aspirin/Codeine (By mouth), Metoprolol (By mouth), Aspirin (By mouth), Losartan (By mouth), Atorvastatin (By mouth), Clopidogrel (By mouth), Hypertension, How to Stop Smoking (ED), How to Stop Smoking (DC), Heart Healthy Diet (ED), Heart Healthy Diet (DC), Angiogram (DC), Opioid Safety, Post Angiogram Home Care Instructions Discharge Attestations Time Spent in Discharge Care*: greater than 30 min Specific Discharge Activities: educating patient, discussing with pcp/other providers, discussing with human services case manager/social workers/dc planners, documenting/other paperwork and evaluating patient/reviewing data Status at Discharge: Cognitive status at discharge: cognitively intact, Behavioral status at discharge: cooperative, Functional status at discharge: independent ambulation, Overall status at discharge: patient is back to baseline Quality Metrics Clinical Quality Measures [ Acute Myocardial Infaction { Clinical Trial Participant: No; Contraindication to aspirin: None; Aspirin prescribed; Contraindication to statin: None; Statin prescribed; Contraindication to PCI: None; PCI performed;}. No reported AMI, CVA or VTE this stay] Coding Level of Care Code 64662 Total time (in minutes) for Discharge: 60 Diagnoses Non-ST elevated myocardial infarction I21.4 Accelerated hypertension I10 Chronic obstructive pulmonary disease, unspecified COPD type J44.9 COPD type: unspecified COPD Tobacco dependence F17.200 Uncomplicated alcohol dependence F10.20 Substance use status: uncomplicated Left ventricular systolic dysfunction (LVSD) without heart failure I51.9
[2024-01-03] MEDS: losartan 50 mg Tablet 25 MG PO (10:26)
--- NOTE | 2024-01-03 10:34 | PC.NURSE ---
prt ready for discharge iv sites removed advised of apt with heart care and with primary doctor ,caution against smokeing etoh and other related does understand po blood pressure med given this am
--- NOTE | 2024-01-03 13:26 | P.PN_ITS ---
Subjective 2 Subjective: The patient is feeling okay. No chest pain or chest tightness. Has been ambulating on telemetry. No new arrhythmias were noted on the monitor. Vital signs are stable. No hematoma or bleeding from the right radial arterial puncture site. Patient was found to have moderate disease in the proximal LAD with thrombus Medications: Medication Review Details: Patient seems to be tolerating the Plavix and aspirin. Vitals/I&O/Wt Last Vital Signs Temp 97.8 F 01/03/24 12:02 Pulse 65 01/03/24 12:02 Resp 16 01/03/24 12:02 BP 150/73 01/03/24 12:02 Pulse Ox 94 01/03/24 12:02 O2 Del Method Room Air 01/03/24 08:16 O2 Flow Rate 2 01/03/24 02:51 01/02/24 01/03/24 01/03/24 22:59 06:59 14:59 Intake Total 271.325 / 271.325 933.75 / 1205.075 200 / 200 Output Total 950 / 950 Balance 271.325 / 271.325 -16.25 / 255.075 200 / 200 Weight last 48 hrs Weight 231 lb 6.4 oz Weight 231 lb 6.4 oz Weight 220 lb Weight 220 lb Physical Exam 2 Narrative: GENERAL: The patient is alert and oriented times three. Not in any acute distress. HEENT: No significant pallor, icterus or lymphadenopathy.Oral cavity: There are no mucous membrane lesions. NECK: Trachea appears to be central. No masses noted. No JVD or thyromegaly appreciated. RESPIRATORY: Chest is symmetrical. No intercostals muscle retraction or any accessory muscle activation. There is no chest wall tenderness. Breath sounds are heard bilaterally. No rales or rhonchi heard. No evidence of any consolidation. BREASTS: Deferred. HEART: The heart sounds are normal. No S3 or S4. No significant murmurs. No pericardial rub ABDOMEN: No vessel pulsations or distention. No tenderness. No organomegaly appreciated. Bowel sounds are normally heard. : Deferred. RECTAL: Deferred. LYMPHATIC: No lymphadenopathy noted in the neck. EXTREMITIES: No edema or cyanosis. No clubbing. Right radial arterial puncture site has no hematoma bleeding MUSCULOSKELETAL: No acute joint deformities or swelling SKIN: There are no significant rashes or ecchymosis NEUROPSYCHIATRIC: The patient is alert and oriented x3. Appears to be in a good mood. No tremors or rigidity noted. Data 01/03/24 02:43 01/03/24 02:43 Other Labs: Laboratory Last Values WBC 12.30 10^3/uL (3.29-11.43) H 01/03/24 02:43 RBC 5.05 10^6/uL (3.85-5.65) 01/03/24 02:43 Hgb 15.60 g/dL (11.27-16.99) 01/03/24 02:43 Hct 47.7 % (37-53) 01/03/24 02:43 MCV 94.5 fl (82-101) 01/03/24 02:43 MCH 30.9 pg (27-33) 01/03/24 02:43 MCHC 32.7 g/dL (30-55) 01/03/24 02:43 RDW 13.8 % (12.1-15.1) 01/03/24 02:43 Plt Count 546 10^3/cmm (157-399) H 01/03/24 02:43 MPV 10.7 fL (7.4-10.4) H 01/03/24 02:43 Neut % (Auto) 64.1 % 01/03/24 02:43 Lymph % (Auto) 23.9 % 01/03/24 02:43 [place] % (Auto) 6.5 % 01/03/24 02:43 Eos % (Auto) 3.8 % 01/03/24 02:43 Baso % (Auto) 1.0 % 01/03/24 02:43 Neut # (Auto) 7.88 10^3/uL (1.8-7.7) H 01/03/24 02:43 Lymph # (Auto) 2.9 10^3/uL (0.8-4.8) 01/03/24 02:43 [place] # (Auto) 0.8 10^3/uL (0.2-0.9) 01/03/24 02:43 Eos # (Auto) 0.5 10^3/uL (0.0-0.8) 01/03/24 02:43 Baso # (Auto) 0.1 10^3/uL (0.0-0.1) 01/03/24 02:43 Nucleated RBC % (auto) 0 % 01/03/24 02:43 Nucleated RBCs # 0.0 /100WBC 01/03/24 02:43 Sodium 136 mmol/L (136-145) 01/03/24 02:43 Potassium 3.9 mmol/L (3.5-5.1) 01/03/24 02:43 Chloride 103 mmol/L (98-107) 01/03/24 02:43 Carbon Dioxide 20 mmol/L (22-29) L 01/03/24 02:43 Anion Gap 16.9 (5-19) 01/03/24 02:43 BUN 9 mg/dL (6-20) 01/03/24 02:43 Creatinine 0.9 mg/dL (0.7-1.2) 01/03/24 02:43 GFR Calculation 87.9 mL/min (90-130) L 01/03/24 02:43 Glucose 107 mg/dL (65-115) 01/03/24 02:43 Estimat Average Glucose 126 01/03/24 02:43 Hemoglobin A1c 6.0 % (4.0-6.0) 01/03/24 02:43 Calculated Osmolality 281 mOsm/kg (285-295) L 01/03/24 02:43 Calcium 8.4 mg/dL (8.5-10.5) L 01/03/24 02:43 Phosphorus 3.0 mg/dL (2.5-4.5) 01/03/24 02:43 Magnesium 2.0 mg/dL (1.7-2.3) 01/03/24 02:43 Iron 68 ug/dL (59-158) 01/02/24 12:23 TIBC 210 mcg/dl 01/02/24 12:23 % Saturation 32.3 % (20-50) 01/02/24 12:23 Unsat Iron Binding 142 ug/dL (112-347) 01/02/24 12:23 Total Bilirubin 0.6 mg/dL (0.15-1.2) 01/03/24 02:43 AST 27 U/L (0-40) 01/03/24 02:43 ALT 27 U/L (0-41) 01/03/24 02:43 Alkaline Phosphatase 76 U/L (40-130) 01/03/24 02:43 Troponin T Baseline 29 ng/L (0-15) H 01/02/24 10:25 Troponin T 120 Minute 224.1 ng/L (0-15) H 01/02/24 12:23 Delta Troponin T 195.1 ABS# (0-10) H* 01/02/24 12:23 Troponin T Hi Sens 6Hr 608.2 ng/L (0-15) H 01/02/24 16:24 Troponin T Hi Sens 6Hr Delta 579.2 ng/L (0-12) H* 01/02/24 16:24 C-Reactive Protein 3.0 mg/L (0.0-4.9) 01/02/24 10:25 NT-Pro-B Natriuret Pep 58 pg/mL (0-125) 01/02/24 10:25 Total Protein 6.3 g/dL (6.6-8.7) L 01/03/24 02:43 Albumin 3.8 g/dL (3.5-5.2) 01/03/24 02:43 Globulin 2.5 g/dL (1.3-4.6) 01/03/24 02:43 Triglycerides 136 mg/dL (0-150) 01/03/24 02:43 Cholesterol 161 mg/dL (0-200) 01/03/24 02:43 LDL Cholesterol, Calc 82 mg/dL (50-129) 01/03/24 02:43 HDL Cholesterol 52 mg/dL (60-100) L 01/03/24 02:43 LDL/HDL Ratio 1.58 RATIO (0.00-3.22) 01/03/24 02:43 Cholesterol/HDL Ratio 3.10 mg/dL (1.0-5.00) 01/03/24 02:43 Vitamin B12 319 pg/mL (232-1245) 01/02/24 12:23 Folate 9.8 ng/mL (4.5-32.2) 01/03/24 02:43 Procalcitonin 0.15 ng/mL (0-0.5) 01/02/24 12:23 TSH 1.27 uIU/mL (0.27-4.20) 01/02/24 12:23 Urine Color Yellow (Yellow) 01/02/24 14:18 Urine Appearance Clear (CLEAR) 01/02/24 14:18 Urine pH 5.5 (5-7) 01/02/24 14:18 Ur Specific [place] 1.059 (1.005-1.030) H 01/02/24 14:18 Urine Protein Trace (Negative) A 01/02/24 14:18 Urine Glucose (UA) Negative (Normal) 01/02/24 14:18 Urine Ketones Negative (Negative) 01/02/24 14:18 Urine Blood Negative (Negative) 01/02/24 14:18 Urine Nitrate Negative (Negative) 01/02/24 14:18 Urine Bilirubin Negative (Negative) 01/02/24 14:18 Urine Urobilinogen 1.0 mg/dL (Negative) 01/02/24 14:18 Ur Leukocyte Esterase Negative (Negative) 01/02/24 14:18 Urine RBC 0-2 /hpf (0-2) 01/02/24 14:18 Urine WBC 0-5 /hpf (0-5) 01/02/24 14:18 Ur Squamous Epith Cells 0-5 /hpf (0-5) 01/02/24 14:18 Amorphous Sediment Not Reportable 01/02/24 14:18 Urine Bacteria None seen /hpf (NONE) 01/02/24 14:18 Hyaline Casts 1.65 /lpf 01/02/24 14:18 Urine Opiates Screen Negative ng/mL (Negative) 01/02/24 14:18 Ur Barbiturates Screen Negative ng/mL (Negative) 01/02/24 14:18 Ur Phencyclidine Scrn Negative ng/mL (Negative) 01/02/24 14:18 Ur Amphetamines Screen Negative ng/mL (Negative) 01/02/24 14:18 U Benzodiazepines Scrn Negative ng/mL (Negative) 01/02/24 14:18 Urine Cocaine Screen Negative ng/mL (Negative) 01/02/24 14:18 U Marijuana (THC) Screen Positive ng/mL (Negative) H 01/02/24 14:18 Ethyl Alcohol < 10 mg/dL (0-10) 01/02/24 14:29 Other data: Underwent a cardiac catheterization which revealed moderate disease in the proximal LAD with thrombus requiring PCI. A&P Assessment and plan (1) Non-ST elevated myocardial infarction: Patient has clinical features of an unstable angina complicated with non-ST elevation myocardial infarction. His echocardiographic evidence of wall motion abnormalities may suggest three-vessel disease versus involvement of a wraparound LAD. In view of his ongoing symptoms, he may benefit from a cardiac catheterization. (2) Accelerated hypertension: The blood pressure is currently elevated. Patient apparently has not taken his blood pressure medication this morning. May go ahead and give him the amlodipine 5 mg p.o. now and daily. Continue the IV nitro and the metoprolol. (3) Tobacco dependence: Patient strongly advised to quit smoking. (4) Alcohol dependence: Patient requires lifestyle modification. Understands the cardiovascular implications. Qualifiers: Substance use status: uncomplicated Qualified Code(s): F10.20 - Alcohol dependence, uncomplicated (5) Major depressive disorder, recurrent: May continue the current management. Qualifiers: Active/Remission status: remission status unspecified Qualified Code(s): F33.9 - Major depressive disorder, recurrent, unspecified (6) COPD (chronic obstructive pulmonary disease): Continue on the current treatment. Qualifiers: COPD type: unspecified COPD Qualified Code(s): J44.9 - Chronic obstructive pulmonary disease, unspecified Plan Patient may be continued on the Plavix and aspirin. Continue on the Lipitor. Discontinue amlodipine. Start him on losartan 25 mg p.o. daily. Continue the metoprolol. Importance of lifestyle modification was once again discussed with the patient which he seems understand well. Briefly discussed about cardiac rehab. Will be discussing about it more at the time of his office visit in 1 week If he continues to remain stable, may be discharged home today. [facility]ointment [facility] in 1 week, to be seen by the nurse practitioner. Appointment with me in the office in 1 month. Attestations 2 Medical Necessity Statement*: Possible discharge home today Coding Level of Care Code 29047 Diagnoses Non-ST elevated myocardial infarction I21.4 Accelerated hypertension I10 Tobacco dependence F17.200 Uncomplicated alcohol dependence F10.20 Substance use status: uncomplicated Recurrent major depressive disorder, remission status unspecified F33.9 Active/Remission status: remission status unspecified Chronic obstructive pulmonary disease, unspecified COPD type J44.9 COPD type: unspecified COPD
--- NOTE | 2024-01-03 14:15 | PC.NURSE ---
Underground Miner was house wirer helper on Thursday when patient arrived in the ER. ER Charge called me to let me know that the patient had a 12 year old daughter with him and that if she could not stay while patient went to [facility], he would leave AMA. Because [facility] is closed and patient came in with chest pain, magnetic tape typewriter operator knew the patient would end up in ICU so I called ICU and spoke to the charge JAYME, who stated she did not want to the patient to leave as it would likely be very detrimental to his health. JAYME said the patient's daughter could wait in ICU while patient was in [facility]. JAYME thenm set up a recliner and TV for the 12 year old as well as ordered her a tray. There was no delay of time between the patient being told he needed to go to [facility] and ICU accepting the situation. BJ came and got the 12 year old and took her back to ICU. [facility] Stacey Randolph was called and aprised of the situation. [facility] advised nursing staff to try to work on getting someone to come tke the child home, but unfortunately there were no other options available. 12 year old stayed with father overnight without issue.
== END 2024-01-03 12:33 | disposition home or self-care (01) | DRG 322 ==
LOC: ER 12:08 → ICU 13:40
PROVIDERS: Internal Medicine; Internal Medicine Cardiovascular Disease; Admitting Provider Student in an Organized Health Care Education/Training Program; Emergency Provider Emergency Medicine; PCP Family Medicine; Visit Provider Student in an Organized Health Care Education/Training Program
PROC: 4A023N7 Measurement of Cardiac Sampling and Pressure, Left Heart, Percutaneous Approach (ICD-10-PCS; principal; 2024-01-02 17:00)
PROC: 0270346 Dilation of Coronary Artery, One Artery, Bifurcation, with Drug-eluting Intraluminal Device, Percutaneous Approach (ICD-10-PCS; 2024-01-02 17:00)
DX: I21.4 Non-ST elevation (NSTEMI) myocardial infarction (principal); I16.0 Hypertensive urgency; I25.110 Atherosclerotic heart disease of native coronary artery with unstable angina pectoris; J44.9 Chronic obstructive pulmonary disease, unspecified; F10.20 Alcohol dependence, uncomplicated; F17.200 Nicotine dependence, unspecified, uncomplicated; F12.90 Cannabis use, unspecified, uncomplicated; I51.89 Other ill-defined heart diseases; F43.10 Post-traumatic stress disorder, unspecified; F32.9 Major depressive disorder, single episode, unspecified
CPT/HCPCS: 36415; 71045; 71275; 80053; 80061; 80306; 80307; 81003; 81015; 82607; 82746; 83036; 83540; 83550; 83735; 83880; 84100; 84145; 84443; 84484; 85025; 85347; 86140; 92978; 93005; 93306; 93458; 94640; 94664; 96372; 96374; 96375; 96376; 99152; 99153; 99285; C1725; C1753; C1769; C1874; C1887; C1894; C9600; J1644; J1650; J2250; J2470; J3010; J3411; J3490; J7030; J7614; J7626; J7644; Q9967

== ENCOUNTER → 2024-01-19 13:24 | Outpatient (BNVA) | payer OTHER, SELFPAY | PROVIDERS: PCP Family Medicine; Visit Provider Nurse Practitioner Family | DX: I21.4 Non-ST elevation (NSTEMI) myocardial infarction (principal) | CPT/HCPCS: 36415; 80048 ==

== ENCOUNTER 2024-03-24 13:33 | Outpatient (CLI) | payer OTHER, SELFPAY ==
--- NOTE | 2024-03-24 13:30 | USCV_ITS ---
Shashi Hough Age: 53 Gender: M : 1970 Exam Date: 03/24/2024 14:13 Ordering Phys: Sharmaine Maciel MD ([email or web address]) Technologist: ZOE [place]am Location[place] [facility] [place]: pain Risk Factors: Previous Vascular Surgery: RIGHT LEFT BP: 154.0 / 80.00 BP: 160.0/ 97.00 0 0 Waveform Velocity (cm/s) Velocity (cm/s) Waveform Triphasic 138.5 Iliac Prox 76.8 Triphasic Triphasic 126.8 Iliac Mid 104.3 Triphasic Triphasic 153.5 Iliac Distal 152.4 Triphasic Triphasic 170.0 TUBE TELLER 183.0 Triphasic Triphasic 140.0 SFA Prox 239.0 Biphasic Triphasic 107.0 SFA Mid 84.0 Monophasic Triphasic 103.0 SFA Dist 135.0 Monophasic Triphasic 65.0 POP 43.0 Monophasic Triphasic 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 Moderate heterogenous plaques in the left iliac and femoral arteries Resting JEANNA 1.1 on the right side and 0.8 on the left side. CONCLUSIONS 1.Mild diffuse plaque in the iliac and femoral artery on the right side. Moderate heterogenous plaque in the left iliac and femoral artery on the left side. 2. Normal resting JEANNA and arterial Doppler waveforms on the right side, suggesting no significant arterial obstruction. 3, Abnormal resting JEANNA and arterial Doppler waveforms suggesting mild PAD on the left side. Elevated Doppler velocity at the level of the proximal SFA on the left side, suggesting greater than 50% stenosis. Consider exercise JEANNA to better evaluate the functional significance, if clinically indicated Dr Twin Ohara MD [facility] (Electronically Signed) Final Date: 25 March 2024 09:39 S
== END 2024-03-24 13:34 | disposition home or self-care (01) ==
LOC: RAD 13:34
PROVIDERS: PCP Family Medicine; Visit Provider Internal Medicine Cardiovascular Disease
DX: I51.9 Heart disease, unspecified (principal); I70.202 Unspecified atherosclerosis of native arteries of extremities, left leg; I70.201 Unspecified atherosclerosis of native arteries of extremities, right leg
CPT/HCPCS: 93925

== ENCOUNTER 2024-06-08 10:01 | Outpatient (CLI) | payer OTHER, SELFPAY ==
[2024-06-08 10:34] LABS: Anion Gap 15.6 (5-19); Blood Urea Nitrogen 11 mg/dL (6-20); Carbon Dioxide 24 mmol/L (22-29); Chloride 100 mmol/L (98-107); Glomerular Filtration Rate 69.8 mL/min (90-130); Glucose 138 mg/dL (65-115); Osmolality Calculated 282 mOsm/kg (285-295); Potassium 4.6 mmol/L (3.5-5.1); Sodium 135 mmol/L (136-145)
[2024-06-08 10:37] LABS: Calcium 9.5 mg/dL (8.5-10.5)
== END 2024-06-08 10:02 | disposition home or self-care (01) ==
LOC: RAD 10:03
PROVIDERS: Absent Provider Family Medicine; PCP Family Medicine; Visit Provider Internal Medicine Cardiovascular Disease
DX: I51.9 Heart disease, unspecified (principal)
CPT/HCPCS: 80048

== ENCOUNTER 2024-06-17 10:38 | Outpatient (CLI) | payer OTHER, SELFPAY ==
--- NOTE | 2024-06-17 10:47 | USR_ITS ---
PROCEDURE INFORMATION: Exam: US Bilateral Noninvasive Physiologic Study of the Lower Extremity Arteries, Limited Exam date and time: 06/17/2024 11:42 AM Age: 53 years old Clinical indication: Screening exam; Additional info: Claudication TECHNIQUE: Imaging protocol: Bilateral Limited bilateral noninvasive physiologic studies of lower extremity arteries. Waveforms were obtained and evaluated. Images were documented and archived. Exam is limited. COMPARISON: No relevant prior studies available. FINDINGS: Right Ankle-Brachial Index: 1.2. Left Ankle-Brachial Index: 1.0. US/CV ankle brachial index 68047 IMPRESSION: No evidence of stenosis or occlusion in the lower extremity.
== END 2024-06-17 10:39 | disposition home or self-care (01) ==
PROVIDERS: PCP Family Medicine; Visit Provider Family Medicine
DX: I73.9 Peripheral vascular disease, unspecified (principal); M79.606 Pain in leg, unspecified
CPT/HCPCS: 93922

== ENCOUNTER 2024-12-23 09:06 | Outpatient (CLI) | payer OTHER, SELFPAY ==
--- NOTE | 2024-12-23 09:18 | US_ITS ---
WS: [id number] RIGHT UPPER QUADRANT ULTRASOUND HISTORY: Alcoholic LIVER DISEASE COMPARISON: 08/19/2022 Liver: 18.4 cm in length. Liver is top normal size. Surface nodularity of the liver and coarse echotexture throughout. No mass. The entire liver is not well visualized. Portal Vein: Normal hepatopetal flow with monophasic waveform. Gallbladder: Status post cholecystectomy. CBD: 0.3 cm Pancreas: Poorly visualized in its entirety. Right kidney: 11.2 cm in length. Normal size and echogenicity. No hydronephrosis or mass. Aorta and IVC: Unremarkable abdominal aorta and IVC. No ascites. US/US liver [id number] IMPRESSION: 1. Prior cholecystectomy. 2. Cirrhotic appearing liver. Cirrhotic changes are new since 08/19/2022. 3. No intrahepatic duct dilatation.
== END 2024-12-23 09:07 | disposition home or self-care (01) ==
LOC: RAD 09:07
PROVIDERS: PCP Family Medicine; Visit Provider Family Medicine
DX: K70.9 Alcoholic liver disease, unspecified (principal); Z90.49 Acquired absence of other specified parts of digestive tract
CPT/HCPCS: 76705

== ENCOUNTER 2025-03-28 09:56 | Outpatient (CLI) | payer OTHER, SELFPAY ==
--- NOTE | 2025-03-28 10:00 | USCV_ITS ---
Shashi Hough Age: 54 Gender: M : 1970 Exam Date: 03/28/2025 10:23 Ordering Phys: Nirali Yadav Technologist: Exam Location: [facility] – [place] Indication: ef BP: 180 / 100 HR: Rhythm: Sinus Technical Quality: Adequate MEASUREMENTS (Male / Female) Normal Values 2D ECHO LVOT Diameter 2.0 cm LV Ejection Fraction MOD 4C 65.7 % LV Ejection Fraction MOD 2C 74.7 % LV Ejection Fraction 2C AL 75.1 % LA Diameter 3.9 cm RA Systolic Volume 4C AL 23.5 ml RA Systolic Volume 4C MOD 22.9 ml Aorta at Sinotubular Diameter 3.2 cm IVC Diameter 2.1 cm M-MODE LA Ao Ratio MM 1.3 AV Cusp Separation MM 1.9 cm FINDINGS Left Ventricle Normal left ventricular size and systolic function, EF 75%.no regional wall motion abnormalities. Right Ventricle Normal right ventricular size and systolic function. Right Atrium Normal right atrial size. Left Atrium Normal left atrial size. IA Septum Appears to be intact. Mitral Valve No gross abnormalities noted Aortic Valve No gross abnormalities noted Tricuspid Valve No gross abnormalities noted Pulmonic Valve Pulmonic valve not well visualized. Pericardium No pericardial effusion. Aorta Normal aortic annulus size. IVC Normal inferior vena cava. CONCLUSIONS Normal left ventricular size and systolic function, EF 75%. No regional wall motion abnormalities. Normal cardiac chamber sizes. No gross valvular abnormalities. There is no pericardial effusion. There are no intracardiac masses. Compared to the study from 01/02/2024 the LV ejection fraction has significantly improved from 45% to 75% Dr Twin Ohara MD [facility] (Electronically Signed) Final Date: 30 March 2025 10:01 S
== END 2025-03-28 09:57 | disposition home or self-care (01) ==
LOC: RAD 09:57
PROVIDERS: PCP Family Medicine; Visit Provider Nurse Practitioner Family
DX: I50.22 Chronic systolic (congestive) heart failure (principal)
CPT/HCPCS: 93308